=== PATIENT | female | born 1930 | race Caucasian/White ===

== ENCOUNTER 2016-11-14 21:28 | Inpatient (IN) | payer MEDICARE, BC ==
[2016-11-14] MEDS ORDERED: Milk Of Magnesia 30 ML UDCUP PO PRN (22:32)
[2016-11-15] MEDS: Acetaminophen 500 MG TAB PO SCH ×5 (00:18→23:02)
[2016-11-15 06:08] LABS: ALT (SGPT) 16 U/L (8-55); AST (SGOT) 24 U/L (5-34); Albumin 3.2 g/dL (3.4-4.8); Alkaline Phosphatase 72 U/L (40-150); Anion Gap 16 mmol/L (10-20); BUN (Urea Nitrogen) 37 mg/dL (9.8-20.1); Bilirubin, Total 0.6 mg/dL (0.2-1.2); Calc. Creatinine Clearance 40 mL/min (70-130); Calcium 9.2 mg/dL (7.8-10.44); Carbon Dioxide 28 mmol/L (23-31); Chloride 101 mmol/L (98-107); Estimated GFR-MDRD 28; Globulin 3.6 g/dL (2.4-3.5); Glucose 132 mg/dL (83-110); Protein, Total 6.8 g/dL (6.0-8.3); Sodium 141 mmol/L (136-145)
[2016-11-15 06:11] LABS: Eosinophils 2 % (0-10); Hemoglobin 9.3 g/dL (12.0-16.0); Lymphocytes 37 % (21-51); MDiff Complete? YES; Mean Corpuscular HGB CONC 34.3 g/dL (32.0-36.0); Mean Corpuscular Volume 99.1 fl (81.0-99.0); Mean Platelet Volume 7.3 fL (7.4-10.4); Monocytes 7 % (0-10); Neutrophil 54 % (42-75); PLT Morphology Comment Appears Adequate; Platelet Count 252 thou/uL (130-400); RBC Distribution Width 14.2 % (11.5-14.5); Red Blood Cell (RBC) Count 2.75 mill/uL (4.20-5.40); White Blood Cell (WBC) Count 9.7 thou/uL (4.8-10.8)
[2016-11-15] MEDS: Mometasone/Formoterol 60 PUFF AER INH SCH ×2 (08:10→18:08)
[2016-11-15] MEDS: Losartan Potassium 25 MG TAB PO SCH (08:11)
[2016-11-15] MEDS: Potassium Chloride 10 MEQ TAB PO SCH (08:12)
[2016-11-15] MEDS: NIFEdipine XL 30 MG TAB PO SCH (08:13)
[2016-11-15] MEDS: Floranex Packet PO SCH (08:13)
[2016-11-15] MEDS: Ferrous Gluconate 324 MG TAB PO SCH ×2 (08:13→17:26)
[2016-11-15] MEDS: Senokot S 8.6-50 MG TAB PO SCH ×2 (08:14→20:22)
[2016-11-15] MEDS: Gabapentin 300 MG CAP PO SCH (08:14)
[2016-11-15] MEDS: Ezetimibe 10 MG TAB PO SCH (08:14)
[2016-11-15] MEDS: Vit A,C & E/Lutein/Minerals Tablet PO SCH (08:14)
[2016-11-15] MEDS: Heparin 5,000 UNITS/ML VIAL SC SCH ×2 (08:15→21:50)
[2016-11-15] MEDS: Polyethylene Glycol 3350 17 GM Packet PO SCH (08:16)
[2016-11-15] MEDS: Bisacodyl 10 MG SUPP PR SCH (08:19)
[2016-11-15] MEDS ORDERED: BIOTIN PO SCH (09:00)
[2016-11-15] MEDS ORDERED: VITAMIN E PO SCH (09:00)
[2016-11-15] MEDS ORDERED: ASCORBIC ACID PO SCH (09:00)
[2016-11-15] MEDS ORDERED: Furosemide 40 MG TAB PO SCH ×2 (09:00→10:30)
--- NOTE | 2016-11-15 09:54 | RAD ---
SINGLE VIEW OF CHEST: Date: 11/15/16 COMPARISON: 11/11/16. HISTORY: COPD and low oxygen saturation. FINDINGS: Single view of the chest shows an enlarged but stable cardiomediastinal silhouette with atherosclero tic calcifications in the aorta. Increased interstitial lung markings are present. There is no evide nce of consolidation, mass, or pleural effusion. IMPRESSION: Cardiomegaly without evidence of acute cardiopulmonary disease. POS: [facility]
[2016-11-15] MEDS: Furosemide 80 MG TAB PO SCH (15:00)
[2016-11-15 21:22] LABS: INR-International Normal Ratio 1.2; PTT 30.8 SEC (22.9-36.1)
[2016-11-15] MEDS: traMADol HCl 50 MG TAB PO PRN (21:37)
[2016-11-16] MEDS: Acetaminophen 500 MG TAB PO SCH ×4 (05:52→23:29)
[2016-11-16] MEDS: Mometasone/Formoterol 60 PUFF AER INH SCH ×2 (07:25→18:06)
[2016-11-16] MEDS: Heparin 5,000 UNITS/ML VIAL SC SCH (08:40)
[2016-11-16] MEDS: Ezetimibe 10 MG TAB PO SCH (08:40)
[2016-11-16] MEDS: Vit A,C & E/Lutein/Minerals Tablet PO SCH (08:40)
[2016-11-16] MEDS: Potassium Chloride 10 MEQ TAB PO SCH (08:41)
[2016-11-16] MEDS: NIFEdipine XL 30 MG TAB PO SCH (08:42)
[2016-11-16] MEDS: Senokot S 8.6-50 MG TAB PO SCH ×2 (08:42→20:52)
[2016-11-16] MEDS: Floranex Packet PO SCH (08:43)
[2016-11-16] MEDS: Furosemide 80 MG TAB PO SCH ×2 (08:43→14:42)
[2016-11-16] MEDS: Ferrous Gluconate 324 MG TAB PO SCH ×2 (08:43→17:09)
[2016-11-16] MEDS: Losartan Potassium 25 MG TAB PO SCH (08:43)
[2016-11-16] MEDS: Gabapentin 300 MG CAP PO SCH (08:44)
[2016-11-16] MEDS: Polyethylene Glycol 3350 17 GM Packet PO SCH (08:44)
[2016-11-16] MEDS: Bisacodyl 10 MG SUPP PR SCH (08:44)
[2016-11-16] MEDS: Nitroglycerin 0.4 MG TAB (25 Tab Bottle) SL PRN ×2 (21:35→22:01)
[2016-11-16 22:47] LABS: Troponin I 0.092 ng/mL (< 0.028)
[2016-11-17] MEDS: Acetaminophen 500 MG TAB PO SCH ×4 (06:01→23:05)
[2016-11-17] MEDS: Mometasone/Formoterol 60 PUFF AER INH SCH ×2 (06:02→19:11)
[2016-11-17 08:23] LABS: INR-International Normal Ratio 1.1; Mean Corpuscular HGB CONC 32.3 g/dL (32.0-36.0); Mean Corpuscular Hemoglobin 32.6 pg (27.0-31.0); PTT 28.5 SEC (22.9-36.1); Platelet Count 283 thou/uL (130-400); Prothrombin Time 14.9 SEC (12.0-14.7); RBC Distribution Width 15.7 % (11.5-14.5); Red Blood Cell (RBC) Count 2.75 mill/uL (4.20-5.40); White Blood Cell (WBC) Count 10.7 thou/uL (4.8-10.8)
[2016-11-17 08:33] LABS: Anion Gap 18 mmol/L (10-20); BUN (Urea Nitrogen) 37 mg/dL (9.8-20.1); Calc. Creatinine Clearance 38 mL/min (70-130); Carbon Dioxide 26 mmol/L (23-31); Chloride 101 mmol/L (98-107); Estimated GFR-MDRD 26; Glucose 131 mg/dL (83-110); Potassium 3.8 mmol/L (3.5-5.1); Sodium 141 mmol/L (136-145)
[2016-11-17] MEDS: Potassium Chloride 10 MEQ TAB PO SCH (08:44)
[2016-11-17] MEDS: Ferrous Gluconate 324 MG TAB PO SCH ×2 (08:44→17:15)
[2016-11-17] MEDS: Floranex Packet PO SCH (08:45)
[2016-11-17 08:47] LABS: CKMB 2.1 ng/mL (0-6.6)
[2016-11-17] MEDS: Gabapentin 300 MG CAP PO SCH (08:47)
[2016-11-17] MEDS: Ezetimibe 10 MG TAB PO SCH (08:47)
[2016-11-17] MEDS: Senokot S 8.6-50 MG TAB PO SCH ×2 (08:47→20:59)
[2016-11-17] MEDS: Vit A,C & E/Lutein/Minerals Tablet PO SCH (08:47)
[2016-11-17] MEDS: Furosemide 80 MG TAB PO SCH ×2 (08:48→14:12)
[2016-11-17] MEDS: Losartan Potassium 25 MG TAB PO SCH (08:48)
[2016-11-17] MEDS: NIFEdipine XL 30 MG TAB PO SCH (08:48)
[2016-11-17] MEDS: Polyethylene Glycol 3350 17 GM Packet PO SCH (08:49)
[2016-11-17] MEDS: Bisacodyl 10 MG SUPP PR SCH (08:53)
[2016-11-17 08:54] LABS: Anisocytosis MARKED = >30 cells (100X) (0-5/hpf); Band 11 % (5-11); Eosinophils 2 % (0-10); Hypochromia MARKED = >30 cells (100X) (0-5/hpf); Lymphocytes 11 % (21-51); MDiff Complete? YES; Macrocytosis MARKED = >30 cells (100X) (0-5/hpf); Monocytes 7 % (0-10); Neutrophil 69 % (42-75); Poikilocytosis SLIGHT = 6-15 cells (100X) (0-5/hpf)
[2016-11-17] MEDS: Heparin 5,000 UNITS/ML VIAL SC SCH ×2 (08:59→20:58)
[2016-11-17] MEDS: traMADol HCl 50 MG TAB PO PRN (11:47)
[2016-11-17 14:08] LABS: CKMB 2.3 ng/mL (0-6.6); Troponin I 0.066 ng/mL (< 0.028)
[2016-11-18] MEDS: Acetaminophen 500 MG TAB PO SCH ×4 (05:28→23:22)
[2016-11-18] MEDS: Mometasone/Formoterol 60 PUFF AER INH SCH ×2 (07:08→20:03)
[2016-11-18] MEDS: Heparin 5,000 UNITS/ML VIAL SC SCH ×2 (08:19→20:05)
[2016-11-18] MEDS: AZILSARTAN 80 MG PO SCH (08:19)
[2016-11-18] MEDS: Floranex Packet PO SCH (08:20)
[2016-11-18] MEDS: Gabapentin 300 MG CAP PO SCH (08:20)
[2016-11-18] MEDS: Potassium Chloride 10 MEQ TAB PO SCH (08:20)
[2016-11-18] MEDS: Vit A,C & E/Lutein/Minerals Tablet PO SCH (08:20)
[2016-11-18] MEDS: Furosemide 40 MG TAB PO SCH ×2 (08:20→14:41)
[2016-11-18] MEDS: Ezetimibe 10 MG TAB PO SCH (08:21)
[2016-11-18] MEDS: NIFEdipine XL 30 MG TAB PO SCH (08:21)
[2016-11-18] MEDS: Ferrous Gluconate 324 MG TAB PO SCH ×2 (08:22→17:20)
[2016-11-18] MEDS: Senokot S 8.6-50 MG TAB PO SCH ×2 (08:23→20:05)
[2016-11-18] MEDS: Polyethylene Glycol 3350 17 GM Packet PO SCH (08:23)
[2016-11-18] MEDS: traMADol HCl 50 MG TAB PO PRN (21:51)
[2016-11-19] MEDS ORDERED: Senokot S 8.6-50 MG TAB ONE (08:00)
[2016-11-19] MEDS ORDERED: Ferrous Gluconate 324 MG TAB ONE (08:00)
[2016-11-19] MEDS ORDERED: Potassium Chloride 10 MEQ TAB ONE (08:00)
[2016-11-19] MEDS ORDERED: Furosemide 40 MG TAB ONE (09:00)
[2016-11-19] MEDS ORDERED: Ezetimibe 10 MG TAB ONE (09:00)
[2016-11-19] MEDS ORDERED: Floranex Packet ONE (09:00)
[2016-11-19] MEDS ORDERED: Gabapentin 300 MG CAP ONE (09:00)
[2016-11-19] MEDS ORDERED: NIFEdipine XL 30 MG TAB ONE (09:00)
[2016-11-19] MEDS ORDERED: Heparin 5,000 UNITS/ML VIAL ONE (09:00)
[2016-11-19] MEDS ORDERED: Polyethylene Glycol 3350 17 GM Packet ONE (09:00)
[2016-11-19] MEDS ORDERED: Vit A,C & E/Lutein/Minerals Tablet ONE (09:00)
[2016-11-19] MEDS: Acetaminophen 500 MG TAB PO SCH ×3 (11:17→17:27)
[2016-11-19] MEDS: Ferrous Gluconate 324 MG TAB PO SCH ×2 (11:18→17:27)
[2016-11-19] MEDS: Mometasone/Formoterol 60 PUFF AER INH SCH ×2 (11:18→20:57)
[2016-11-19] MEDS: Floranex Packet PO SCH (11:19)
[2016-11-19] MEDS: Potassium Chloride 10 MEQ TAB PO SCH (11:19)
[2016-11-19] MEDS: Gabapentin 300 MG CAP PO SCH (11:20)
[2016-11-19] MEDS: Furosemide 40 MG TAB PO SCH ×2 (11:20→14:43)
[2016-11-19] MEDS: Ezetimibe 10 MG TAB PO SCH (11:20)
[2016-11-19] MEDS: Heparin 5,000 UNITS/ML VIAL SC SCH ×2 (11:20→21:03)
[2016-11-19] MEDS: Vit A,C & E/Lutein/Minerals Tablet PO SCH (11:21)
[2016-11-19] MEDS: Polyethylene Glycol 3350 17 GM Packet PO SCH (11:21)
[2016-11-19] MEDS: AZILSARTAN 80 MG PO SCH (11:21)
[2016-11-19] MEDS: NIFEdipine XL 30 MG TAB PO SCH (11:21)
[2016-11-19] MEDS: Senokot S 8.6-50 MG TAB PO SCH ×2 (11:21→21:03)
[2016-11-19 14:19] VITALS: BMI 44.1
[2016-11-20] MEDS: Acetaminophen 500 MG TAB PO SCH ×4 (02:07→17:23)
[2016-11-20] MEDS: Mometasone/Formoterol 60 PUFF AER INH SCH ×3 (08:19→17:24)
[2016-11-20] MEDS: AZILSARTAN 80 MG PO SCH (08:46)
[2016-11-20] MEDS: Potassium Chloride 10 MEQ TAB PO SCH (08:47)
[2016-11-20] MEDS: Floranex Packet PO SCH (08:47)
[2016-11-20] MEDS: Senokot S 8.6-50 MG TAB PO SCH ×2 (08:47→20:54)
[2016-11-20] MEDS: NIFEdipine XL 30 MG TAB PO SCH (08:48)
[2016-11-20] MEDS: Ezetimibe 10 MG TAB PO SCH (08:48)
[2016-11-20] MEDS: Ferrous Gluconate 324 MG TAB PO SCH ×2 (08:48→17:23)
[2016-11-20] MEDS: Furosemide 40 MG TAB PO SCH ×3 (08:50→15:36)
[2016-11-20] MEDS: Heparin 5,000 UNITS/ML VIAL SC SCH ×2 (08:51→20:52)
[2016-11-20] MEDS: Polyethylene Glycol 3350 17 GM Packet PO SCH (08:51)
[2016-11-20] MEDS: Gabapentin 300 MG CAP PO SCH (08:52)
[2016-11-20] MEDS: Vit A,C & E/Lutein/Minerals Tablet PO SCH (08:52)
[2016-11-21] MEDS: traMADol HCl 50 MG TAB PO PRN ×2 (00:10→22:39)
[2016-11-21] MEDS: Acetaminophen 500 MG TAB PO SCH ×4 (00:10→18:18)
[2016-11-21] MEDS: Senokot S 8.6-50 MG TAB PO SCH ×2 (08:28→20:52)
[2016-11-21] MEDS: Floranex Packet PO SCH (08:28)
[2016-11-21] MEDS: Vit A,C & E/Lutein/Minerals Tablet PO SCH (08:28)
[2016-11-21] MEDS: Ferrous Gluconate 324 MG TAB PO SCH ×2 (08:28→18:18)
[2016-11-21] MEDS: Gabapentin 300 MG CAP PO SCH (08:29)
[2016-11-21] MEDS: Potassium Chloride 10 MEQ TAB PO SCH (08:29)
[2016-11-21] MEDS: NIFEdipine XL 30 MG TAB PO SCH (08:29)
[2016-11-21] MEDS: Furosemide 40 MG TAB PO SCH ×2 (08:29→15:41)
[2016-11-21] MEDS: Polyethylene Glycol 3350 17 GM Packet PO SCH (08:30)
[2016-11-21] MEDS: AZILSARTAN 80 MG PO SCH (08:31)
[2016-11-21] MEDS: Ezetimibe 10 MG TAB PO SCH (08:31)
[2016-11-21] MEDS: Mometasone/Formoterol 60 PUFF AER INH SCH ×2 (08:34→18:18)
[2016-11-21] MEDS: Heparin 5,000 UNITS/ML VIAL SC SCH ×2 (12:13→20:51)
[2016-11-22] MEDS: Acetaminophen 500 MG TAB PO SCH ×4 (06:19→17:28)
[2016-11-22] MEDS: Gabapentin 300 MG CAP PO SCH (09:28)
[2016-11-22] MEDS: Vit A,C & E/Lutein/Minerals Tablet PO SCH (09:29)
[2016-11-22] MEDS: NIFEdipine XL 30 MG TAB PO SCH (09:29)
[2016-11-22] MEDS: Floranex Packet PO SCH (09:29)
[2016-11-22] MEDS: Heparin 5,000 UNITS/ML VIAL SC SCH ×2 (09:30→20:19)
[2016-11-22] MEDS: Polyethylene Glycol 3350 17 GM Packet PO SCH (09:30)
[2016-11-22] MEDS: Furosemide 40 MG TAB PO SCH ×2 (09:30→15:07)
[2016-11-22] MEDS: Ezetimibe 10 MG TAB PO SCH (09:30)
[2016-11-22] MEDS: Senokot S 8.6-50 MG TAB PO SCH ×2 (09:30→20:20)
[2016-11-22] MEDS: Potassium Chloride 10 MEQ TAB PO SCH (09:31)
[2016-11-22] MEDS: Ferrous Gluconate 324 MG TAB PO SCH ×2 (09:31→17:28)
[2016-11-22] MEDS: Mometasone/Formoterol 60 PUFF AER INH SCH ×2 (09:31→18:03)
[2016-11-22] MEDS: AZILSARTAN 80 MG PO SCH (09:32)
[2016-11-23] MEDS: Acetaminophen 500 MG TAB PO SCH ×4 (00:04→17:13)
[2016-11-23] MEDS: Mometasone/Formoterol 60 PUFF AER INH SCH ×2 (06:17→18:11)
[2016-11-23] MEDS: Floranex Packet PO SCH (09:08)
[2016-11-23] MEDS: Polyethylene Glycol 3350 17 GM Packet PO SCH (09:08)
[2016-11-23] MEDS: Potassium Chloride 10 MEQ TAB PO SCH (09:09)
[2016-11-23] MEDS: Vit A,C & E/Lutein/Minerals Tablet PO SCH (09:09)
[2016-11-23] MEDS: Ferrous Gluconate 324 MG TAB PO SCH ×2 (09:09→17:13)
[2016-11-23] MEDS: Senokot S 8.6-50 MG TAB PO SCH ×2 (09:09→21:13)
[2016-11-23] MEDS: Gabapentin 300 MG CAP PO SCH (09:09)
[2016-11-23] MEDS: Furosemide 40 MG TAB PO SCH ×2 (09:10→15:04)
[2016-11-23] MEDS: NIFEdipine XL 30 MG TAB PO SCH (09:10)
[2016-11-23] MEDS: Heparin 5,000 UNITS/ML VIAL SC SCH ×2 (09:11→21:11)
[2016-11-23] MEDS: Ezetimibe 10 MG TAB PO SCH (09:11)
[2016-11-23] MEDS: AZILSARTAN 80 MG PO SCH (09:11)
[2016-11-23] MEDS: traMADol HCl 50 MG TAB PO PRN (21:46)
[2016-11-24] MEDS: Acetaminophen 500 MG TAB PO SCH ×4 (02:47→17:14)
[2016-11-24] MEDS: Mometasone/Formoterol 60 PUFF AER INH SCH ×2 (08:08→18:10)
[2016-11-24] MEDS: traMADol HCl 50 MG TAB PO PRN (08:24)
[2016-11-24] MEDS: Ferrous Gluconate 324 MG TAB PO SCH ×2 (08:26→17:14)
[2016-11-24] MEDS: Heparin 5,000 UNITS/ML VIAL SC SCH ×2 (08:26→20:43)
[2016-11-24] MEDS: Polyethylene Glycol 3350 17 GM Packet PO SCH (08:26)
[2016-11-24] MEDS: Senokot S 8.6-50 MG TAB PO SCH ×2 (08:27→20:45)
[2016-11-24] MEDS: Ezetimibe 10 MG TAB PO SCH (08:27)
[2016-11-24] MEDS: Gabapentin 300 MG CAP PO SCH (08:27)
[2016-11-24] MEDS: NIFEdipine XL 30 MG TAB PO SCH (08:27)
[2016-11-24] MEDS: Vit A,C & E/Lutein/Minerals Tablet PO SCH (08:27)
[2016-11-24] MEDS: Potassium Chloride 10 MEQ TAB PO SCH (08:29)
[2016-11-24] MEDS: Furosemide 40 MG TAB PO SCH ×2 (08:29→14:26)
[2016-11-24] MEDS: AZILSARTAN 80 MG PO SCH (08:29)
[2016-11-24] MEDS: Floranex Packet PO SCH (08:41)
[2016-11-25] MEDS: Acetaminophen 500 MG TAB PO SCH ×3 (04:09→11:18)
[2016-11-25] MEDS: Mometasone/Formoterol 60 PUFF AER INH SCH ×2 (06:36→18:25)
[2016-11-25] MEDS: Potassium Chloride 10 MEQ TAB PO SCH (09:01)
[2016-11-25] MEDS: Ferrous Gluconate 324 MG TAB PO SCH ×2 (09:01→16:54)
[2016-11-25] MEDS: Floranex Packet PO SCH (09:02)
[2016-11-25] MEDS: Ezetimibe 10 MG TAB PO SCH (09:03)
[2016-11-25] MEDS: Gabapentin 300 MG CAP PO SCH (09:03)
[2016-11-25] MEDS: Furosemide 40 MG TAB PO SCH ×2 (09:03→13:51)
[2016-11-25] MEDS: Heparin 5,000 UNITS/ML VIAL SC SCH ×2 (09:03→22:18)
[2016-11-25] MEDS: NIFEdipine XL 30 MG TAB PO SCH (09:04)
[2016-11-25] MEDS: Senokot S 8.6-50 MG TAB PO SCH ×2 (09:06→22:18)
[2016-11-25] MEDS: Polyethylene Glycol 3350 17 GM Packet PO SCH (09:06)
[2016-11-25] MEDS: Vit A,C & E/Lutein/Minerals Tablet PO SCH (09:06)
[2016-11-25] MEDS: AZILSARTAN 80 MG PO SCH (09:12)
[2016-11-25] MEDS ORDERED: Acetaminophen 500 MG TAB PO PRN (13:27)
[2016-11-25 13:59] LABS: INR-International Normal Ratio 1.1; Prothrombin Time 13.9 SEC (12.0-14.7)
[2016-11-25 14:03] LABS: Hemoglobin 9.3 g/dL (12.0-16.0); Platelet Count 307 thou/uL (130-400)
[2016-11-26] MEDS: Bisacodyl 10 MG SUPP PR PRN (09:14)
[2016-11-26] MEDS: Mometasone/Formoterol 60 PUFF AER INH SCH ×2 (09:15→19:18)
[2016-11-26] MEDS: Polyethylene Glycol 3350 17 GM Packet PO SCH (09:15)
[2016-11-26] MEDS: Floranex Packet PO SCH (09:15)
[2016-11-26] MEDS: Ferrous Gluconate 324 MG TAB PO SCH ×2 (09:16→17:37)
[2016-11-26] MEDS: NIFEdipine XL 30 MG TAB PO SCH (09:16)
[2016-11-26] MEDS: Ezetimibe 10 MG TAB PO SCH (09:16)
[2016-11-26] MEDS: Vit A,C & E/Lutein/Minerals Tablet PO SCH (09:16)
[2016-11-26] MEDS: Gabapentin 300 MG CAP PO SCH (09:16)
[2016-11-26] MEDS: Potassium Chloride 10 MEQ TAB PO SCH (09:17)
[2016-11-26] MEDS: Heparin 5,000 UNITS/ML VIAL SC SCH ×2 (09:17→20:39)
[2016-11-26] MEDS: Furosemide 40 MG TAB PO SCH ×3 (09:17→15:44)
[2016-11-26] MEDS: Senokot S 8.6-50 MG TAB PO SCH ×2 (09:17→20:40)
[2016-11-26] MEDS: AZILSARTAN 80 MG PO SCH (09:18)
[2016-11-26] MEDS: Nystatin Cream 15 GM TUBE TOP SCH ×2 (17:37→20:40)
[2016-11-27] MEDS: Mometasone/Formoterol 60 PUFF AER INH SCH ×2 (06:06→19:49)
[2016-11-27] MEDS: AZILSARTAN 80 MG PO SCH (08:33)
[2016-11-27] MEDS: Nystatin Cream 15 GM TUBE TOP SCH ×2 (08:34→20:39)
[2016-11-27] MEDS: Vit A,C & E/Lutein/Minerals Tablet PO SCH (08:34)
[2016-11-27] MEDS: Heparin 5,000 UNITS/ML VIAL SC SCH ×2 (08:34→20:39)
[2016-11-27] MEDS: Senokot S 8.6-50 MG TAB PO SCH ×2 (08:35→20:39)
[2016-11-27] MEDS: Floranex Packet PO SCH (08:35)
[2016-11-27] MEDS: Potassium Chloride 10 MEQ TAB PO SCH (08:35)
[2016-11-27] MEDS: NIFEdipine XL 30 MG TAB PO SCH (08:35)
[2016-11-27] MEDS: Ezetimibe 10 MG TAB PO SCH (08:35)
[2016-11-27] MEDS: Gabapentin 300 MG CAP PO SCH (08:35)
[2016-11-27] MEDS: Ferrous Gluconate 324 MG TAB PO SCH ×2 (08:36→17:24)
[2016-11-27] MEDS: Furosemide 40 MG TAB PO SCH ×2 (08:36→14:22)
[2016-11-27] MEDS: Polyethylene Glycol 3350 17 GM Packet PO SCH (08:36)
[2016-11-28] MEDS: Mometasone/Formoterol 60 PUFF AER INH SCH ×2 (06:15→18:34)
[2016-11-28] MEDS: Fluconazole 100 MG TAB PO SCH (08:26)
[2016-11-28] MEDS: Vit A,C & E/Lutein/Minerals Tablet PO SCH (08:26)
[2016-11-28] MEDS: Ezetimibe 10 MG TAB PO SCH (08:26)
[2016-11-28] MEDS: Senokot S 8.6-50 MG TAB PO SCH ×2 (08:27→21:05)
[2016-11-28] MEDS: Furosemide 40 MG TAB PO SCH ×2 (08:27→14:36)
[2016-11-28] MEDS: Gabapentin 300 MG CAP PO SCH (08:27)
[2016-11-28] MEDS: Floranex Packet PO SCH (08:27)
[2016-11-28] MEDS: Polyethylene Glycol 3350 17 GM Packet PO SCH (08:28)
[2016-11-28] MEDS: Ferrous Gluconate 324 MG TAB PO SCH ×2 (08:28→18:34)
[2016-11-28] MEDS: Potassium Chloride 10 MEQ TAB PO SCH (08:28)
[2016-11-28] MEDS: NIFEdipine XL 30 MG TAB PO SCH (08:28)
[2016-11-28] MEDS: AZILSARTAN 80 MG PO SCH (08:29)
[2016-11-28] MEDS: Heparin 5,000 UNITS/ML VIAL SC SCH ×2 (10:24→21:06)
[2016-11-28] MEDS: Nystatin Cream 15 GM TUBE TOP SCH ×2 (10:25→21:06)
[2016-11-29] MEDS: Mometasone/Formoterol 60 PUFF AER INH SCH ×2 (09:38→18:25)
[2016-11-29] MEDS: Ferrous Gluconate 324 MG TAB PO SCH ×2 (09:39→17:28)
[2016-11-29] MEDS: Potassium Chloride 10 MEQ TAB PO SCH (09:40)
[2016-11-29] MEDS: Floranex Packet PO SCH (09:41)
[2016-11-29] MEDS: Heparin 5,000 UNITS/ML VIAL SC SCH ×2 (09:42→20:35)
[2016-11-29] MEDS: Furosemide 40 MG TAB PO SCH ×2 (09:42→13:55)
[2016-11-29] MEDS: Ezetimibe 10 MG TAB PO SCH (09:42)
[2016-11-29] MEDS: Gabapentin 300 MG CAP PO SCH (09:42)
[2016-11-29] MEDS: Fluconazole 100 MG TAB PO SCH (09:42)
[2016-11-29] MEDS: NIFEdipine XL 30 MG TAB PO SCH (09:43)
[2016-11-29] MEDS: AZILSARTAN 80 MG PO SCH (09:44)
[2016-11-29] MEDS: Vit A,C & E/Lutein/Minerals Tablet PO SCH (09:45)
[2016-11-29] MEDS: Senokot S 8.6-50 MG TAB PO SCH ×2 (09:45→20:34)
[2016-11-29] MEDS: Polyethylene Glycol 3350 17 GM Packet PO SCH (09:45)
[2016-11-29] MEDS: Nystatin Cream 15 GM TUBE TOP SCH ×2 (11:30→20:35)
[2016-11-30] MEDS: Mometasone/Formoterol 60 PUFF AER INH SCH ×2 (06:09→18:13)
[2016-11-30] MEDS: Floranex Packet PO SCH (09:16)
[2016-11-30] MEDS: Ferrous Gluconate 324 MG TAB PO SCH ×2 (09:16→17:39)
[2016-11-30] MEDS: Potassium Chloride 10 MEQ TAB PO SCH (09:16)
[2016-11-30] MEDS: Ezetimibe 10 MG TAB PO SCH (09:17)
[2016-11-30] MEDS: Furosemide 40 MG TAB PO SCH ×2 (09:18→14:11)
[2016-11-30] MEDS: Fluconazole 100 MG TAB PO SCH (09:18)
[2016-11-30] MEDS: Gabapentin 300 MG CAP PO SCH (09:18)
[2016-11-30] MEDS: NIFEdipine XL 30 MG TAB PO SCH (09:19)
[2016-11-30] MEDS: Heparin 5,000 UNITS/ML VIAL SC SCH ×2 (09:19→20:41)
[2016-11-30] MEDS: AZILSARTAN 80 MG PO SCH (09:20)
[2016-11-30] MEDS: Vit A,C & E/Lutein/Minerals Tablet PO SCH (09:21)
[2016-11-30] MEDS: Polyethylene Glycol 3350 17 GM Packet PO SCH (09:21)
[2016-11-30] MEDS: Senokot S 8.6-50 MG TAB PO SCH ×2 (09:21→20:40)
[2016-11-30] MEDS: Nystatin Cream 15 GM TUBE TOP SCH ×2 (09:44→20:42)
[2016-11-30] MEDS: Bisacodyl 10 MG SUPP PR PRN (15:05)
[2016-12-01] MEDS: Mometasone/Formoterol 60 PUFF AER INH SCH ×2 (06:06→18:07)
[2016-12-01] MEDS: Fluconazole 100 MG TAB PO SCH (08:18)
[2016-12-01] MEDS: Potassium Chloride 10 MEQ TAB PO SCH (08:18)
[2016-12-01] MEDS: Ferrous Gluconate 324 MG TAB PO SCH ×2 (08:18→16:52)
[2016-12-01] MEDS: Ezetimibe 10 MG TAB PO SCH (08:20)
[2016-12-01] MEDS: NIFEdipine XL 30 MG TAB PO SCH (08:20)
[2016-12-01] MEDS: Gabapentin 300 MG CAP PO SCH (08:20)
[2016-12-01] MEDS: Heparin 5,000 UNITS/ML VIAL SC SCH ×2 (08:20→20:24)
[2016-12-01] MEDS: Furosemide 40 MG TAB PO SCH ×2 (08:20→13:03)
[2016-12-01] MEDS: AZILSARTAN 80 MG PO SCH (08:21)
[2016-12-01] MEDS: Nystatin Cream 15 GM TUBE TOP SCH ×2 (08:21→20:24)
[2016-12-01] MEDS: Senokot S 8.6-50 MG TAB PO SCH ×2 (08:22→20:24)
[2016-12-01] MEDS: Polyethylene Glycol 3350 17 GM Packet PO SCH (08:22)
[2016-12-01] MEDS: Vit A,C & E/Lutein/Minerals Tablet PO SCH (08:22)
[2016-12-01] MEDS: Floranex Packet PO SCH (08:24)
[2016-12-01 13:41] LABS: Bilirubin Negative (Negative); Blood, Urine Moderate (Negative); Clarity Slightly Cloudy (Clear); Glucose, Urine (Dipstick) Negative (Negative); Leukocyte Moderate (Negative); Nitrite Positive (Negative); Protein, Urine (Dipstick) 30 mg/dL (Neg-Trace); Specific Gravity, Urine 1.015 (1.005-1.030); Urobilinogen 0.2 mg/dL (0.2-1.0)
[2016-12-01 13:44] LABS: Bacteria/HPF 2+ HPF (None Seen); Squamous Epithelial 21-50 HPF (0-3)
[2016-12-01] MEDS ORDERED: Cipro 250 MG TAB PO SCH (14:45)
[2016-12-01] MEDS: Bisacodyl 10 MG SUPP PR PRN (15:19)
[2016-12-01] MEDS: Cipro 250 MG TAB PO SCH (20:24)
[2016-12-02 05:11] LABS: Hemoglobin 9.4 g/dL (12.0-16.0); Platelet Count 223 thou/uL (130-400)
[2016-12-02] MEDS: Mometasone/Formoterol 60 PUFF AER INH SCH (06:03)
[2016-12-02] MEDS: Cipro 250 MG TAB PO SCH (06:03)
[2016-12-02] MEDS: Polyethylene Glycol 3350 17 GM Packet PO SCH (08:35)
[2016-12-02] MEDS: Furosemide 40 MG TAB PO SCH ×2 (08:35→13:53)
[2016-12-02] MEDS: NIFEdipine XL 30 MG TAB PO SCH (08:35)
[2016-12-02] MEDS: Potassium Chloride 10 MEQ TAB PO SCH (08:35)
[2016-12-02] MEDS: Senokot S 8.6-50 MG TAB PO SCH (08:35)
[2016-12-02] MEDS: Floranex Packet PO SCH (08:36)
[2016-12-02] MEDS: Fluconazole 100 MG TAB PO SCH (08:36)
[2016-12-02] MEDS: Ferrous Gluconate 324 MG TAB PO SCH ×2 (08:36→17:35)
[2016-12-02] MEDS: Vit A,C & E/Lutein/Minerals Tablet PO SCH (08:36)
[2016-12-02] MEDS: Heparin 5,000 UNITS/ML VIAL SC SCH (08:37)
[2016-12-02] MEDS: Gabapentin 300 MG CAP PO SCH (08:37)
[2016-12-02] MEDS: Ezetimibe 10 MG TAB PO SCH (08:37)
[2016-12-02] MEDS: Nystatin Cream 15 GM TUBE TOP SCH (08:38)
[2016-12-02] MEDS: AZILSARTAN 80 MG PO SCH (08:38)
[2016-12-02 14:29] LABS: ALT (SGPT) 21 U/L (8-55); AST (SGOT) 16 U/L (5-34); Albumin 3.2 g/dL (3.4-4.8); Alkaline Phosphatase 86 U/L (40-150); Anion Gap 19 mmol/L (10-20); BUN (Urea Nitrogen) 37 mg/dL (9.8-20.1); Bilirubin, Total 0.5 mg/dL (0.2-1.2); Calc. Creatinine Clearance 30 mL/min (70-130); Carbon Dioxide 26 mmol/L (23-31); Chloride 99 mmol/L (98-107); Estimated GFR-MDRD 20; Globulin 3.4 g/dL (2.4-3.5); Glucose 164 mg/dL (83-110); Potassium 4.8 mmol/L (3.5-5.1); Protein, Total 6.6 g/dL (6.0-8.3); Sodium 139 mmol/L (136-145)
[2016-12-02 14:34] LABS: CKMB 1.2 ng/mL (0-6.6); Troponin I 0.062 ng/mL (< 0.028)
[2016-12-02 14:43] LABS: #Basophils 0.1 thou/uL (0.0-0.2); #Eosinphils 0.1 thou/uL (0.0-0.7); #Lymphocytes 0.4 thou/uL (1.20-3.40); #Monocytes 0.4 thou/uL (0.11-0.59); #Neutrophils 4.7 thou/uL (1.40-6.50); %Basophils 1.9 % (0.0-1.0); %Lymphocytes 6.6 % (21.0-51.0); %Monocytes 7.5 % (0.0-10.0); Hemoglobin 9.8 g/dL (12.0-16.0); Mean Corpuscular HGB CONC 30.9 g/dL (32.0-36.0); Mean Corpuscular Volume 107.1 fl (81.0-99.0); Platelet Count 231 thou/uL (130-400); RBC Distribution Width 17.6 % (11.5-14.5); Red Blood Cell (RBC) Count 2.97 mill/uL (4.20-5.40); White Blood Cell (WBC) Count 5.7 thou/uL (4.8-10.8)
[2016-12-02 14:44] LABS: Anisocytosis SLIGHT = 6-15 cells (100X) (0-5/hpf); MDiff Complete? YES; PLT Morphology Comment Appears Adequate
[2016-12-02 14:51] LABS: INR-International Normal Ratio 1.1; PTT 32.7 SEC (22.9-36.1); Prothrombin Time 14.3 SEC (12.0-14.7)
[2016-12-02] MEDS ORDERED: Furosemide 20 MG/2 ML VIAL SLOW IVP SCH (15:30)
--- NOTE | 2016-12-02 15:31 | RAD ---
CHEST ONE VIEW: History: Dyspnea. Follow up. Comparison: 11-15-16 FINDINGS: Cardiac silhouette is magnified and enlarged. Pulmonary vasculature remains engorged with wide sprea d reticular nodular interstitial prominence, similar in appearance to the previous exam. Mediastinum is midline with aortic calcification. There is no evidence of pneumothorax. Metallic clips overlie the right side of the neck and the left axilla. IMPRESSION: Radiographic findings of CHF are similar in appearance to the previous exam. POS: [facility]
[2016-12-02 19:08] VITALS: BP 103/51; TEMP 99.4
== END 2016-12-02 19:04 | disposition short-term general hospital (02) | DRG 559 ==
LOC: MADMS 21:28
PROVIDERS: ADMIT Family Medicine; ATTEND Family Medicine
DX: S72.401D Unspecified fracture of lower end of right femur, subsequent encounter for closed fracture with routine healing (principal); J96.20 Acute and chronic respiratory failure, unspecified whether with hypoxia or hypercapnia; I50.33 Acute on chronic diastolic (congestive) heart failure; N17.9 Acute kidney failure, unspecified; Z99.81 Dependence on supplemental oxygen; D62 Acute posthemorrhagic anemia; I48.91 Unspecified atrial fibrillation; N39.0 Urinary tract infection, site not specified; B37.2 Candidiasis of skin and nail; I13.0 Hypertensive heart and chronic kidney disease with heart failure and stage 1 through stage 4 chronic kidney disease, or unspecified chronic kidney disease; S01.01XD Laceration without foreign body of scalp, subsequent encounter; N18.9 Chronic kidney disease, unspecified; J44.9 Chronic obstructive pulmonary disease, unspecified; W01.0XXD Fall on same level from slipping, tripping and stumbling without subsequent striking against object, subsequent encounter; R33.9 Retention of urine, unspecified; Z66 Do not resuscitate; Z85.118 Personal history of other malignant neoplasm of bronchus and lung
CPT/HCPCS: 36415; 36416; 71010; 80048; 80053; 81001; 82553; 83880; 84484; 85007; 85014; 85018; 85025; 85027; 85049; 85610; 85730; 87077; 87086; 87186; 94640; 94664; G8978-GP-CM; G8979-GP-CK; J1644; J1940; J7620

== ENCOUNTER 2016-12-08 17:42 | Inpatient (IN) | payer MEDICARE, BC ==
[2016-12-08] MEDS ORDERED: Milk Of Magnesia 30 ML UDCUP PO PRN (20:22)
[2016-12-08] MEDS ORDERED: Nitroglycerin 0.4 MG TAB (25 Tab Bottle) SL PRN (20:22)
[2016-12-08] MEDS: Senokot S 8.6-50 MG TAB PO SCH (21:13)
[2016-12-08] MEDS: Heparin 5,000 UNITS/ML VIAL SC SCH (21:13)
[2016-12-08] MEDS: Nystatin Cream 15 GM TUBE TOP SCH (21:14)
[2016-12-09] MEDS: Mometasone/Formoterol 60 PUFF AER INH SCH ×2 (06:04→18:11)
[2016-12-09] MEDS: Furosemide 40 MG TAB PO SCH ×2 (06:04→14:11)
[2016-12-09] MEDS ORDERED: Bisacodyl 10 MG SUPP PR SCH (09:00)
[2016-12-09] MEDS ORDERED: Multivitamin W/ Minerals 1 TAB PO SCH (09:00)
[2016-12-09] MEDS: Heparin 5,000 UNITS/ML VIAL SC SCH ×2 (10:43→20:42)
[2016-12-09] MEDS: NIFEdipine XL 30 MG TAB PO SCH (10:44)
[2016-12-09] MEDS: Ferrous Gluconate 324 MG TAB PO SCH ×2 (10:44→17:29)
[2016-12-09] MEDS: Potassium Chloride 10 MEQ TAB PO SCH (10:46)
[2016-12-09] MEDS: Senokot S 8.6-50 MG TAB PO SCH ×2 (10:46→20:42)
[2016-12-09] MEDS: Losartan Potassium 25 MG TAB PO SCH (10:47)
[2016-12-09] MEDS: Floranex Packet PO SCH (10:48)
[2016-12-09] MEDS: Gabapentin 300 MG CAP PO SCH (10:48)
[2016-12-09] MEDS: Ezetimibe 10 MG TAB PO SCH (10:48)
[2016-12-09] MEDS: Polyethylene Glycol 3350 17 GM Packet PO SCH (10:48)
[2016-12-09] MEDS: Nystatin Cream 15 GM TUBE TOP SCH ×2 (10:50→20:42)
[2016-12-09] MEDS ORDERED: Bisacodyl 10 MG SUPP PR PRN (13:32)
--- NOTE | 2016-12-10 02:27 | HP ---
DATE OF ADMISSION: 12/08/2016 REASON FOR ADMISSION: Skilled rehabilitation in [facility]. HISTORY OF PRESENT ILLNESS AND HOSPITAL COURSE: Ms. Abernathy is an 86-year- old female with multiple chronic medical conditions,including severe COPD, chronic pulmonary failure, )2 dependent, CHF, HTN CAD , morbid obesity . She has has a recent fall and fracture her right leg from home a month or so ago, status post fall repair. Patient was recently in Skilled rehabilitation at [facility] when she was transferred back to [facility] on 12/02/2016 secondary to acute onset on chronic respiratory failure. This was associated with acute on diastolic congestive heart failure exacerbation. She was seen by Cardiology service during this rehospitalization , and she received intravenous diuretics with significant marked improvement of overall respiratory status. There was a reported acute episode of encephalopathy during her hospital stay that had improved. Her home medications were continued per transfer and her oral diuretic was increased to 40 mg b.i.d. from previously 20 mg daily. PAST MEDICAL HISTORY, SURGICAL HISTORY, FAMILY HISTORY: Has no significant change except as per HPI. MEDICATIONS: Acebutolol 200 mg p.o. daily, amiodarone 100 mg p.o. daily, aspirin chewable 81 mg p.o. daily, Dulcolax 10 mg p.r.n. daily, bisacodyl 10 mg p.o. daily, Zetia 10 mg p.o. daily, ferrous sulfate 324 mg p.o. b.i.d., furosemide 40 mg p.o. b.i.d., gabapentin 300 mg p.o. daily, heparin 5000 units subcutaneous b.i.d., ipratropium and albuterol q.4 p.r.n., losartan 150 mg p.o. daily, magnesium hydroxide 30 mg p.o. daily p.r.n., Dulera 2 puffs inhaled b.i.d., multivitamins with mineral 2 tablets daily, nifedipine XL 50 mg p.o. daily, nitroglycerin 0.4 mg sublingual q.15 minutes p.r.n. for chest pain may repeat every 5 minutes x3 and notify MD, nystatin topical b.i.d., pantoprazole 40 mg p.o. daily., polyethylene glycol 17 mg p.o. daily, potassium chloride 10 mEq p.o. daily, hydralazine 10 mg p.o. q.i.d. p.r.n. PHYSICAL EXAMINATION: VITAL SIGNS: Vital signs on admission temperature 97.8, pulse 58-62, respirations 20-22, O2 sats 86%-88% at 5 liters per nasal cannula, blood pressure 151/69. Current vital signs blood pressure 168/70, temperature 96.6, pulse 62, respirations 16, O2 sats 87%-91% at 5 liters per nasal cannula, weight 229 pounds and 9 ounces, height 5 feet 2. GENERAL: Patient is asleep comfortably resting in bed, easily awakened by verbal stimuli. Awake and alert. Interactive, but easily sleeps back. Not in acute distress. HEENT: Normocephalic, atraumatic. PERRL intact. EOM. Anicteric sclerae. Oral mucosa is moist. NECK: Supple. No LAD, no JVD, no bruit. CHEST: Normal excursion, nonlabored breathing. Lungs faint expiratory wheeze and diminished breath sounds bibasilar, otherwise no crackles, no rhonchi. No rales. CARDIAC: RRR. Normal S1 and S2. ABDOMEN: Obese, soft, normoactive bowel sounds, nondistended, nontender. No rebound, no guarding. Negative CVA tenderness bilaterally. GENITOURINARY: Lopez catheter in place, 150 mL light luis manuel colored urine, clear urine. EXTREMITIES: No edema, no cyanosis. SKIN: Postop side in the right lower leg intact, dry, and clean looking. No exudates. No drainage, no signs of infection, no surrounding erythema or edema. NEURO: Nonfocal. DTRs 2+, unsteady gait. LABORATORY DATA: Recent labs on 12/07/2016, white count 6.6, hemoglobin 10.3, platelets 281. Creatinine 1.84 (decrease from peak of 2.32 on 12/02/2016), potassium 3.2, which was replaced, sodium 142, and BUN 32. V/Q scan low probability for pulmonary emboli. ASSESSMENT AND PLAN: This is an 86-year-old female with multiple chronic medical conditions including diastolic congestive heart failure, chronic respiratory failure, O2 dependent, hypertension, obesity, dyslipidemia, and history of unsteady gait secondary to recent repair of the right leg from recent fall at home. Patient is readmitted back to [facility] to continue skilled rehab that was disrupted by acute exacerbation of diastolic congestive heart failure and acute on chronic respiratory failure requiring tertiary hospitalizations/specialty care. 1. Physical deconditioning. We will refer to PT, OT for muscle strengthening, gait training, and exercises with a goal to be able to go back home with at least minimal assist or versus independent living. Patient remains nonweightbearing on the right lower leg per previous Ortho recommendation. 2. Fall precautions. 3. Acute congestive heart failure exacerbation, diastolic, compensated. We will continue oral diuretics and potassium supplement. Routine laboratory, electrolyte monitoring, and renal function monitoring. 4. Acute and chronic respiratory failure, O2 dependent. Current O2 sats is running between 86%-91% at 5 liters per nasal cannula continuous nasal cannula. This appears to be patient's baseline O2 sats at this time. We will continue to closely monitor. 5. COPD. Continue breathing treatment and Dulera. Hypertension, stable blood pressure. Continue current antihypertensive regimen. 6. Chronic kidney disease, stage 3, stable. 7. Morbid obesity. 8. Unsteady gait remains at the increased risk for fall. 9. Anemia, chronic. CODE STATUS: DNR. DISPOSITION: Home with . Estimated length of stay 3-4 weeks. Further recommendations depending on hospital course. MTDD
[2016-12-10] MEDS: Furosemide 40 MG TAB PO SCH ×2 (06:04→13:38)
[2016-12-10] MEDS: Mometasone/Formoterol 60 PUFF AER INH SCH ×2 (06:05→19:18)
[2016-12-10 06:13] LABS: #Basophils 0.1 thou/uL (0.0-0.2); #Eosinphils 0.2 thou/uL (0.0-0.7); #Lymphocytes 0.6 thou/uL (1.20-3.40); #Monocytes 0.7 thou/uL (0.11-0.59); #Neutrophils 7.1 thou/uL (1.40-6.50); %Basophils 0.8 % (0.0-1.0); %Eosinophils 2.6 % (0.0-10.0); %Lymphocytes 6.7 % (21.0-51.0); %Monocytes 7.9 % (0.0-10.0); %Neutrophils 81.9 % (42.0-75.0); Hemoglobin 10.3 g/dL (12.0-16.0); Mean Corpuscular HGB CONC 30.1 g/dL (32.0-36.0); Mean Corpuscular Hemoglobin 31.6 pg (27.0-31.0); Mean Platelet Volume 7.9 fL (7.4-10.4); Platelet Count 244 thou/uL (130-400); RBC Distribution Width 16.7 % (11.5-14.5); Red Blood Cell (RBC) Count 3.25 mill/uL (4.20-5.40); White Blood Cell (WBC) Count 8.7 thou/uL (4.8-10.8)
[2016-12-10 06:14] LABS: Macrocytosis MODERATE=16-30 cells (100X) (0-5/hpf)
[2016-12-10 07:06] LABS: Anion Gap 15 mmol/L (10-20); BUN (Urea Nitrogen) 33 mg/dL (9.8-20.1); Calc. Creatinine Clearance 34 mL/min (70-130); Calcium 9.2 mg/dL (7.8-10.44); Carbon Dioxide 32 mmol/L (23-31); Chloride 101 mmol/L (98-107); Estimated GFR-MDRD 24; Glucose 104 mg/dL (83-110); Potassium 3.8 mmol/L (3.5-5.1); Sodium 144 mmol/L (136-145)
[2016-12-10 07:08] LABS: Hemoglobin A1c 5.2 % (4.0-6.0)
[2016-12-10] MEDS: NIFEdipine XL 30 MG TAB PO SCH (09:16)
[2016-12-10] MEDS: Senokot S 8.6-50 MG TAB PO SCH ×2 (09:16→21:07)
[2016-12-10] MEDS: Losartan Potassium 25 MG TAB PO SCH (09:17)
[2016-12-10] MEDS: Gabapentin 300 MG CAP PO SCH (09:17)
[2016-12-10] MEDS: Ferrous Gluconate 324 MG TAB PO SCH ×2 (09:18→17:08)
[2016-12-10] MEDS: Vit A,C & E/Lutein/Minerals Tablet PO SCH (09:18)
[2016-12-10] MEDS: Polyethylene Glycol 3350 17 GM Packet PO SCH (09:19)
[2016-12-10] MEDS: Heparin 5,000 UNITS/ML VIAL SC SCH ×2 (09:19→21:07)
[2016-12-10] MEDS: Potassium Chloride 10 MEQ TAB PO SCH (09:19)
[2016-12-10] MEDS: Nystatin Cream 15 GM TUBE TOP SCH ×2 (09:25→21:07)
[2016-12-10] MEDS: Ezetimibe 10 MG TAB PO SCH (09:25)
[2016-12-10] MEDS: Floranex Packet PO SCH (09:25)
[2016-12-11] MEDS: Furosemide 40 MG TAB PO SCH ×2 (05:58→13:58)
[2016-12-11] MEDS: Mometasone/Formoterol 60 PUFF AER INH SCH ×2 (06:03→18:32)
[2016-12-11] MEDS: Senokot S 8.6-50 MG TAB PO SCH ×2 (08:49→20:43)
[2016-12-11] MEDS: Floranex Packet PO SCH (08:49)
[2016-12-11] MEDS: Vit A,C & E/Lutein/Minerals Tablet PO SCH (08:49)
[2016-12-11] MEDS: Polyethylene Glycol 3350 17 GM Packet PO SCH (08:49)
[2016-12-11] MEDS: Ezetimibe 10 MG TAB PO SCH (08:49)
[2016-12-11] MEDS: Potassium Chloride 10 MEQ TAB PO SCH (08:50)
[2016-12-11] MEDS: NIFEdipine XL 30 MG TAB PO SCH (08:50)
[2016-12-11] MEDS: Gabapentin 300 MG CAP PO SCH (08:50)
[2016-12-11] MEDS: Ferrous Gluconate 324 MG TAB PO SCH ×2 (08:51→17:19)
[2016-12-11] MEDS: Heparin 5,000 UNITS/ML VIAL SC SCH ×2 (08:51→20:41)
[2016-12-11] MEDS: Losartan Potassium 25 MG TAB PO SCH (08:51)
[2016-12-11] MEDS: Nystatin Cream 15 GM TUBE TOP SCH ×2 (13:59→20:43)
[2016-12-12] MEDS: Mometasone/Formoterol 60 PUFF AER INH SCH ×2 (06:10→18:25)
[2016-12-12] MEDS: Furosemide 40 MG TAB PO SCH ×2 (06:11→13:02)
[2016-12-12] MEDS: Polyethylene Glycol 3350 17 GM Packet PO SCH (08:20)
[2016-12-12] MEDS: Vit A,C & E/Lutein/Minerals Tablet PO SCH (08:20)
[2016-12-12] MEDS: Ezetimibe 10 MG TAB PO SCH (08:21)
[2016-12-12] MEDS: Losartan Potassium 25 MG TAB PO SCH (08:21)
[2016-12-12] MEDS: Gabapentin 300 MG CAP PO SCH (08:22)
[2016-12-12] MEDS: Senokot S 8.6-50 MG TAB PO SCH ×2 (08:22→21:15)
[2016-12-12] MEDS: NIFEdipine XL 30 MG TAB PO SCH (08:22)
[2016-12-12] MEDS: Ferrous Gluconate 324 MG TAB PO SCH ×2 (08:23→17:23)
[2016-12-12] MEDS: Heparin 5,000 UNITS/ML VIAL SC SCH ×2 (08:23→21:13)
[2016-12-12] MEDS: Floranex Packet PO SCH (08:23)
[2016-12-12] MEDS: Potassium Chloride 10 MEQ TAB PO SCH (08:23)
[2016-12-12] MEDS: Nystatin Cream 15 GM TUBE TOP SCH ×2 (08:24→21:15)
[2016-12-12] MEDS ORDERED: Ketorolac Tromethamine 30 MG/ML VIAL IVP SCH (17:00)
[2016-12-13] MEDS: Furosemide 40 MG TAB PO SCH ×2 (06:08→13:59)
[2016-12-13] MEDS: Mometasone/Formoterol 60 PUFF AER INH SCH ×2 (06:09→18:12)
[2016-12-13] MEDS: Senokot S 8.6-50 MG TAB PO SCH ×2 (07:52→20:16)
[2016-12-13] MEDS: Vit A,C & E/Lutein/Minerals Tablet PO SCH (07:52)
[2016-12-13] MEDS: Losartan Potassium 25 MG TAB PO SCH (07:52)
[2016-12-13] MEDS: Gabapentin 300 MG CAP PO SCH (07:53)
[2016-12-13] MEDS: Potassium Chloride 10 MEQ TAB PO SCH (07:54)
[2016-12-13] MEDS: NIFEdipine XL 30 MG TAB PO SCH (07:54)
[2016-12-13] MEDS: Ezetimibe 10 MG TAB PO SCH (07:54)
[2016-12-13] MEDS: Nystatin Cream 15 GM TUBE TOP SCH ×2 (07:54→20:16)
[2016-12-13] MEDS: Ferrous Gluconate 324 MG TAB PO SCH ×2 (07:54→17:07)
[2016-12-13] MEDS: Heparin 5,000 UNITS/ML VIAL SC SCH ×2 (07:54→20:13)
[2016-12-13] MEDS: Polyethylene Glycol 3350 17 GM Packet PO SCH (07:55)
[2016-12-13] MEDS: Floranex Packet PO SCH (07:55)
[2016-12-13] MEDS: Diabetic Tussin 200 MG/10 ML UDCUP PO PRN (22:02)
[2016-12-14] MEDS: Furosemide 40 MG TAB PO SCH ×2 (05:57→14:01)
[2016-12-14] MEDS: Mometasone/Formoterol 60 PUFF AER INH SCH ×2 (06:00→17:24)
[2016-12-14] MEDS: Diabetic Tussin 200 MG/10 ML UDCUP PO PRN (07:32)
[2016-12-14] MEDS: Floranex Packet PO SCH (09:11)
[2016-12-14] MEDS: Ferrous Gluconate 324 MG TAB PO SCH ×2 (09:11→17:24)
[2016-12-14] MEDS: Ezetimibe 10 MG TAB PO SCH (09:12)
[2016-12-14] MEDS: Losartan Potassium 25 MG TAB PO SCH (09:13)
[2016-12-14] MEDS: Gabapentin 300 MG CAP PO SCH (09:13)
[2016-12-14] MEDS: Heparin 5,000 UNITS/ML VIAL SC SCH ×2 (09:13→20:51)
[2016-12-14] MEDS: NIFEdipine XL 30 MG TAB PO SCH (09:14)
[2016-12-14] MEDS: Potassium Chloride 10 MEQ TAB PO SCH (09:15)
[2016-12-14] MEDS: Nystatin Cream 15 GM TUBE TOP SCH ×2 (09:15→20:51)
[2016-12-14] MEDS: Polyethylene Glycol 3350 17 GM Packet PO SCH (09:15)
[2016-12-14] MEDS: Vit A,C & E/Lutein/Minerals Tablet PO SCH (09:16)
[2016-12-14] MEDS: Senokot S 8.6-50 MG TAB PO SCH ×2 (09:16→20:51)
[2016-12-15] MEDS: Furosemide 40 MG TAB PO SCH ×2 (06:03→15:06)
[2016-12-15] MEDS: Mometasone/Formoterol 60 PUFF AER INH SCH ×2 (06:04→18:05)
[2016-12-15] MEDS: Ferrous Gluconate 324 MG TAB PO SCH ×2 (07:37→18:05)
[2016-12-15] MEDS: Floranex Packet PO SCH (08:54)
[2016-12-15] MEDS: Gabapentin 300 MG CAP PO SCH (08:55)
[2016-12-15] MEDS: Heparin 5,000 UNITS/ML VIAL SC SCH ×2 (08:55→21:02)
[2016-12-15] MEDS: Ezetimibe 10 MG TAB PO SCH (08:55)
[2016-12-15] MEDS: Losartan Potassium 25 MG TAB PO SCH (08:56)
[2016-12-15] MEDS: Senokot S 8.6-50 MG TAB PO SCH ×2 (08:57→21:02)
[2016-12-15] MEDS: Nystatin Cream 15 GM TUBE TOP SCH ×2 (08:57→21:02)
[2016-12-15] MEDS: NIFEdipine XL 30 MG TAB PO SCH (08:57)
[2016-12-15] MEDS: Potassium Chloride 10 MEQ TAB PO SCH (08:57)
[2016-12-15] MEDS: Vit A,C & E/Lutein/Minerals Tablet PO SCH (08:58)
[2016-12-15] MEDS: Polyethylene Glycol 3350 17 GM Packet PO SCH (08:59)
[2016-12-15] MEDS: Acetaminophen 500 MG TAB PO PRN (23:33)
[2016-12-16] MEDS: Mometasone/Formoterol 60 PUFF AER INH SCH ×2 (06:03→17:48)
[2016-12-16] MEDS: Furosemide 40 MG TAB PO SCH ×2 (06:03→13:29)
[2016-12-16] MEDS: Polyethylene Glycol 3350 17 GM Packet PO SCH (09:01)
[2016-12-16] MEDS: Heparin 5,000 UNITS/ML VIAL SC SCH ×2 (09:01→20:34)
[2016-12-16] MEDS: NIFEdipine XL 30 MG TAB PO SCH (09:02)
[2016-12-16] MEDS: Ezetimibe 10 MG TAB PO SCH (09:02)
[2016-12-16] MEDS: Vit A,C & E/Lutein/Minerals Tablet PO SCH (09:02)
[2016-12-16] MEDS: Gabapentin 300 MG CAP PO SCH (09:02)
[2016-12-16] MEDS: Potassium Chloride 10 MEQ TAB PO SCH (09:03)
[2016-12-16] MEDS: Senokot S 8.6-50 MG TAB PO SCH ×2 (09:03→20:35)
[2016-12-16] MEDS: Losartan Potassium 25 MG TAB PO SCH (09:04)
[2016-12-16] MEDS: Ferrous Gluconate 324 MG TAB PO SCH ×2 (09:04→17:48)
[2016-12-16] MEDS: Nystatin Cream 15 GM TUBE TOP SCH ×2 (09:05→20:35)
[2016-12-16] MEDS: Diabetic Tussin 200 MG/10 ML UDCUP PO PRN (13:30)
[2016-12-16] MEDS: Floranex Packet PO SCH (13:35)
[2016-12-17] MEDS: Diabetic Tussin 200 MG/10 ML UDCUP PO PRN (06:24)
[2016-12-17] MEDS: Furosemide 40 MG TAB PO SCH ×2 (06:24→14:05)
[2016-12-17] MEDS: Mometasone/Formoterol 60 PUFF AER INH SCH ×2 (06:25→21:13)
[2016-12-17] MEDS: Ferrous Gluconate 324 MG TAB PO SCH ×2 (09:45→17:19)
[2016-12-17] MEDS: Gabapentin 300 MG CAP PO SCH (09:46)
[2016-12-17] MEDS: Floranex Packet PO SCH (09:46)
[2016-12-17] MEDS: Ezetimibe 10 MG TAB PO SCH (09:46)
[2016-12-17] MEDS: Heparin 5,000 UNITS/ML VIAL SC SCH ×2 (09:47→21:11)
[2016-12-17] MEDS: Nystatin Cream 15 GM TUBE TOP SCH ×2 (09:47→21:00)
[2016-12-17] MEDS: Potassium Chloride 10 MEQ TAB PO SCH (09:47)
[2016-12-17] MEDS: Polyethylene Glycol 3350 17 GM Packet PO SCH (09:47)
[2016-12-17] MEDS: NIFEdipine XL 30 MG TAB PO SCH (09:47)
[2016-12-17] MEDS: Losartan Potassium 25 MG TAB PO SCH (09:47)
[2016-12-17] MEDS: Senokot S 8.6-50 MG TAB PO SCH ×2 (09:48→21:10)
[2016-12-17] MEDS: Vit A,C & E/Lutein/Minerals Tablet PO SCH (09:48)
[2016-12-17] MEDS: Acetaminophen 500 MG TAB PO PRN (21:09)
[2016-12-17] MEDS: Cefdinir 300 MG CAP PO SCH (21:10)
[2016-12-18] MEDS: Furosemide 40 MG TAB PO SCH ×2 (06:00→17:14)
[2016-12-18 06:29] LABS: Hemoglobin 10.5 g/dL (12.0-16.0); Platelet Count 210 thou/uL (130-400)
[2016-12-18] MEDS: Mometasone/Formoterol 60 PUFF AER INH SCH ×3 (06:30→18:22)
[2016-12-18 07:22] LABS: Anion Gap 18 mmol/L (10-20); BUN (Urea Nitrogen) 32 mg/dL (9.8-20.1); Calc. Creatinine Clearance 39 mL/min (70-130); Calcium 9.4 mg/dL (7.8-10.44); Carbon Dioxide 30 mmol/L (23-31); Chloride 100 mmol/L (98-107); Estimated GFR-MDRD 28; Glucose 115 mg/dL (83-110); Potassium 3.8 mmol/L (3.5-5.1); Sodium 144 mmol/L (136-145)
[2016-12-18] MEDS: Ferrous Gluconate 324 MG TAB PO SCH ×2 (08:32→17:11)
[2016-12-18] MEDS: Losartan Potassium 25 MG TAB PO SCH (08:32)
[2016-12-18] MEDS: Vit A,C & E/Lutein/Minerals Tablet PO SCH (08:33)
[2016-12-18] MEDS: NIFEdipine XL 30 MG TAB PO SCH (08:33)
[2016-12-18] MEDS: Potassium Chloride 10 MEQ TAB PO SCH (08:33)
[2016-12-18] MEDS: Cefdinir 300 MG CAP PO SCH ×2 (08:34→21:35)
[2016-12-18] MEDS: Gabapentin 300 MG CAP PO SCH (08:34)
[2016-12-18] MEDS: Ezetimibe 10 MG TAB PO SCH (08:34)
[2016-12-18] MEDS: Senokot S 8.6-50 MG TAB PO SCH ×2 (08:35→21:35)
[2016-12-18] MEDS: Polyethylene Glycol 3350 17 GM Packet PO SCH (08:39)
[2016-12-18] MEDS: Nystatin Cream 15 GM TUBE TOP SCH ×2 (08:39→21:36)
[2016-12-18] MEDS: Floranex Packet PO SCH (08:40)
[2016-12-18] MEDS: Heparin 5,000 UNITS/ML VIAL SC SCH ×2 (08:40→21:35)
--- NOTE | 2016-12-18 10:16 | RAD ---
TWO VIEWS OF THE RIGHT FEMUR: DATE: 12/18/16. HISTORY: Post internal fixation of femur fracture. FINDINGS: Compared to intraoperative fluoroscopic images of the right femur on 11/09/16. There is a retrograde intramedullary wendy with proximal and distal interlocking screws again noted tr ansfixing the fracture of the distal right femoral diaphysis. There is no significant callus format ion appreciated about the fracture. Vascular calcifications are again seen in the superficial femor al arteries. There is an O-shaped increased density focus structure seen medial right thigh only se en on the lateral view that is not appreciated on the frontal projection and may be related to overl edvin artifact as opposed to heterotopic ossifications given this is not present on the frontal proje ction. No acute fracture or dislocation is seen. 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 IMPRESSION: Internal fixation of fracture distal right femur unchanged from intraoperative fluoroscopic images o n 11/09/16. POS: [facility]
[2016-12-19] MEDS: Furosemide 40 MG TAB PO SCH ×2 (05:00→13:00)
[2016-12-19] MEDS: Mometasone/Formoterol 60 PUFF AER INH SCH ×2 (07:47→18:05)
[2016-12-19] MEDS: Polyethylene Glycol 3350 17 GM Packet PO SCH (08:06)
[2016-12-19] MEDS: Vit A,C & E/Lutein/Minerals Tablet PO SCH (08:07)
[2016-12-19] MEDS: Senokot S 8.6-50 MG TAB PO SCH ×2 (08:07→20:45)
[2016-12-19] MEDS: Ferrous Gluconate 324 MG TAB PO SCH ×2 (08:08→16:27)
[2016-12-19] MEDS: Losartan Potassium 25 MG TAB PO SCH (08:08)
[2016-12-19] MEDS: Heparin 5,000 UNITS/ML VIAL SC SCH ×2 (08:09→20:45)
[2016-12-19] MEDS: Potassium Chloride 10 MEQ TAB PO SCH (08:09)
[2016-12-19] MEDS: NIFEdipine XL 30 MG TAB PO SCH (08:10)
[2016-12-19] MEDS: Ezetimibe 10 MG TAB PO SCH (08:11)
[2016-12-19] MEDS: Nystatin Cream 15 GM TUBE TOP SCH ×2 (08:12→20:46)
[2016-12-19] MEDS: Gabapentin 300 MG CAP PO SCH (08:12)
[2016-12-19] MEDS: Cefdinir 300 MG CAP PO SCH ×2 (08:18→20:44)
[2016-12-19] MEDS: Floranex Packet PO SCH (08:18)
[2016-12-20] MEDS: Mometasone/Formoterol 60 PUFF AER INH SCH ×2 (05:58→18:57)
[2016-12-20] MEDS: Furosemide 40 MG TAB PO SCH ×2 (05:59→14:53)
[2016-12-20] MEDS: Cefdinir 300 MG CAP PO SCH ×2 (08:53→20:10)
[2016-12-20] MEDS: Heparin 5,000 UNITS/ML VIAL SC SCH ×2 (08:54→20:09)
[2016-12-20] MEDS: Vit A,C & E/Lutein/Minerals Tablet PO SCH (08:54)
[2016-12-20] MEDS: Senokot S 8.6-50 MG TAB PO SCH ×2 (08:54→20:10)
[2016-12-20] MEDS: NIFEdipine XL 30 MG TAB PO SCH (08:55)
[2016-12-20] MEDS: Floranex Packet PO SCH (08:55)
[2016-12-20] MEDS: Potassium Chloride 10 MEQ TAB PO SCH (08:55)
[2016-12-20] MEDS: Losartan Potassium 25 MG TAB PO SCH (08:55)
[2016-12-20] MEDS: Ezetimibe 10 MG TAB PO SCH (08:55)
[2016-12-20] MEDS: Ferrous Gluconate 324 MG TAB PO SCH ×2 (08:55→16:57)
[2016-12-20] MEDS: Gabapentin 300 MG CAP PO SCH (08:55)
[2016-12-20] MEDS: Polyethylene Glycol 3350 17 GM Packet PO SCH (08:56)
[2016-12-20] MEDS: Nystatin Cream 15 GM TUBE TOP SCH ×2 (08:56→20:10)
[2016-12-20] MEDS: Diabetic Tussin 200 MG/10 ML UDCUP PO PRN (19:05)
[2016-12-20] MEDS: Acetaminophen 500 MG TAB PO PRN (22:29)
[2016-12-21] MEDS: Furosemide 40 MG TAB PO SCH ×3 (06:03→17:33)
[2016-12-21] MEDS: Mometasone/Formoterol 60 PUFF AER INH SCH ×2 (06:03→17:33)
[2016-12-21] MEDS: Heparin 5,000 UNITS/ML VIAL SC SCH ×2 (08:21→21:23)
[2016-12-21] MEDS: Losartan Potassium 25 MG TAB PO SCH (08:22)
[2016-12-21] MEDS: NIFEdipine XL 30 MG TAB PO SCH (08:23)
[2016-12-21] MEDS: Vit A,C & E/Lutein/Minerals Tablet PO SCH (08:23)
[2016-12-21] MEDS: Ezetimibe 10 MG TAB PO SCH (08:23)
[2016-12-21] MEDS: Gabapentin 300 MG CAP PO SCH (08:23)
[2016-12-21] MEDS: Floranex Packet PO SCH (08:24)
[2016-12-21] MEDS: Senokot S 8.6-50 MG TAB PO SCH ×2 (08:24→21:22)
[2016-12-21] MEDS: Nystatin Cream 15 GM TUBE TOP SCH ×2 (08:24→22:00)
[2016-12-21] MEDS: Ferrous Gluconate 324 MG TAB PO SCH ×2 (08:24→17:33)
[2016-12-21] MEDS: Polyethylene Glycol 3350 17 GM Packet PO SCH (08:24)
[2016-12-21] MEDS: Cefdinir 300 MG CAP PO SCH ×2 (08:24→21:23)
[2016-12-21] MEDS: Potassium Chloride 10 MEQ TAB PO SCH (08:24)
[2016-12-22] MEDS: Mometasone/Formoterol 60 PUFF AER INH SCH ×2 (06:06→18:28)
[2016-12-22] MEDS: Furosemide 40 MG TAB PO SCH ×2 (06:07→13:38)
[2016-12-22] MEDS: Ferrous Gluconate 324 MG TAB PO SCH ×2 (08:57→17:03)
[2016-12-22] MEDS: Floranex Packet PO SCH (08:57)
[2016-12-22] MEDS: Ezetimibe 10 MG TAB PO SCH (08:58)
[2016-12-22] MEDS: Vit A,C & E/Lutein/Minerals Tablet PO SCH (08:58)
[2016-12-22] MEDS: Gabapentin 300 MG CAP PO SCH (08:58)
[2016-12-22] MEDS: Heparin 5,000 UNITS/ML VIAL SC SCH ×2 (08:58→20:29)
[2016-12-22] MEDS: Cefdinir 300 MG CAP PO SCH ×2 (08:58→20:29)
[2016-12-22] MEDS: NIFEdipine XL 30 MG TAB PO SCH (08:59)
[2016-12-22] MEDS: Senokot S 8.6-50 MG TAB PO SCH ×2 (08:59→20:29)
[2016-12-22] MEDS: Losartan Potassium 25 MG TAB PO SCH (09:00)
[2016-12-22] MEDS: Polyethylene Glycol 3350 17 GM Packet PO SCH (09:01)
[2016-12-22] MEDS: Potassium Chloride 10 MEQ TAB PO SCH (09:01)
[2016-12-22] MEDS: Nystatin Cream 15 GM TUBE TOP SCH ×2 (09:02→20:30)
[2016-12-23] MEDS: Furosemide 40 MG TAB PO SCH ×2 (06:04→14:07)
[2016-12-23] MEDS: Mometasone/Formoterol 60 PUFF AER INH SCH ×2 (06:05→18:23)
[2016-12-23] MEDS: Ferrous Gluconate 324 MG TAB PO SCH ×2 (07:56→16:41)
[2016-12-23] MEDS: Polyethylene Glycol 3350 17 GM Packet PO SCH (08:02)
[2016-12-23] MEDS: Gabapentin 300 MG CAP PO SCH (08:02)
[2016-12-23] MEDS: Cefdinir 300 MG CAP PO SCH ×2 (08:02→20:46)
[2016-12-23] MEDS: Senokot S 8.6-50 MG TAB PO SCH ×2 (08:03→20:46)
[2016-12-23] MEDS: Vit A,C & E/Lutein/Minerals Tablet PO SCH (08:03)
[2016-12-23] MEDS: Heparin 5,000 UNITS/ML VIAL SC SCH ×2 (08:04→20:46)
[2016-12-23] MEDS: Losartan Potassium 25 MG TAB PO SCH (08:04)
[2016-12-23] MEDS: Ezetimibe 10 MG TAB PO SCH (08:04)
[2016-12-23] MEDS: NIFEdipine XL 30 MG TAB PO SCH (08:06)
[2016-12-23] MEDS: Nystatin Cream 15 GM TUBE TOP SCH ×2 (08:09→20:47)
[2016-12-23] MEDS: Potassium Chloride 10 MEQ TAB PO SCH (08:09)
[2016-12-23] MEDS: Floranex Packet PO SCH (08:12)
[2016-12-24] MEDS: Mometasone/Formoterol 60 PUFF AER INH SCH ×2 (05:24→19:13)
[2016-12-24] MEDS: Furosemide 40 MG TAB PO SCH ×2 (09:41→14:28)
[2016-12-24] MEDS: Cefdinir 300 MG CAP PO SCH ×2 (09:41→20:35)
[2016-12-24] MEDS: Ferrous Gluconate 324 MG TAB PO SCH ×2 (09:41→17:06)
[2016-12-24] MEDS: Floranex Packet PO SCH (09:42)
[2016-12-24] MEDS: Ezetimibe 10 MG TAB PO SCH (09:42)
[2016-12-24] MEDS: Potassium Chloride 10 MEQ TAB PO SCH (09:42)
[2016-12-24] MEDS: NIFEdipine XL 30 MG TAB PO SCH (09:42)
[2016-12-24] MEDS: Vit A,C & E/Lutein/Minerals Tablet PO SCH (09:42)
[2016-12-24] MEDS: Senokot S 8.6-50 MG TAB PO SCH ×2 (09:43→20:35)
[2016-12-24] MEDS: Losartan Potassium 25 MG TAB PO SCH (09:43)
[2016-12-24] MEDS: Gabapentin 300 MG CAP PO SCH (09:43)
[2016-12-24] MEDS: Nystatin Cream 15 GM TUBE TOP SCH ×2 (09:44→20:36)
[2016-12-24] MEDS: Heparin 5,000 UNITS/ML VIAL SC SCH ×2 (09:44→20:35)
[2016-12-24] MEDS: Polyethylene Glycol 3350 17 GM Packet PO SCH (09:44)
[2016-12-25] MEDS: Mometasone/Formoterol 60 PUFF AER INH SCH ×2 (06:03→18:08)
[2016-12-25] MEDS: Furosemide 40 MG TAB PO SCH ×2 (06:03→14:07)
[2016-12-25] MEDS: Senokot S 8.6-50 MG TAB PO SCH ×2 (08:39→20:25)
[2016-12-25] MEDS: NIFEdipine XL 30 MG TAB PO SCH (08:39)
[2016-12-25] MEDS: Ferrous Gluconate 324 MG TAB PO SCH ×2 (08:40→16:59)
[2016-12-25] MEDS: Gabapentin 300 MG CAP PO SCH (08:40)
[2016-12-25] MEDS: Potassium Chloride 10 MEQ TAB PO SCH (08:41)
[2016-12-25] MEDS: Vit A,C & E/Lutein/Minerals Tablet PO SCH (08:41)
[2016-12-25] MEDS: Polyethylene Glycol 3350 17 GM Packet PO SCH (08:41)
[2016-12-25] MEDS: Floranex Packet PO SCH (08:41)
[2016-12-25] MEDS: Heparin 5,000 UNITS/ML VIAL SC SCH ×2 (08:41→20:25)
[2016-12-25] MEDS: Ezetimibe 10 MG TAB PO SCH (08:41)
[2016-12-25] MEDS: Nystatin Cream 15 GM TUBE TOP SCH ×2 (08:42→20:25)
[2016-12-25] MEDS: Losartan Potassium 25 MG TAB PO SCH (08:42)
[2016-12-26] MEDS: Furosemide 40 MG TAB PO SCH ×2 (06:05→14:49)
[2016-12-26] MEDS: Mometasone/Formoterol 60 PUFF AER INH SCH ×2 (06:05→18:14)
[2016-12-26] MEDS: Ferrous Gluconate 324 MG TAB PO SCH ×2 (08:06→17:17)
[2016-12-26] MEDS: Losartan Potassium 25 MG TAB PO SCH (09:28)
[2016-12-26] MEDS: Gabapentin 300 MG CAP PO SCH (09:28)
[2016-12-26] MEDS: Heparin 5,000 UNITS/ML VIAL SC SCH (09:28)
[2016-12-26] MEDS: Ezetimibe 10 MG TAB PO SCH (09:28)
[2016-12-26] MEDS: Nystatin Cream 15 GM TUBE TOP SCH ×2 (09:29→20:14)
[2016-12-26] MEDS: NIFEdipine XL 30 MG TAB PO SCH (09:29)
[2016-12-26] MEDS: Potassium Chloride 10 MEQ TAB PO SCH (09:30)
[2016-12-26] MEDS: Senokot S 8.6-50 MG TAB PO SCH ×2 (09:30→20:13)
[2016-12-26] MEDS: Polyethylene Glycol 3350 17 GM Packet PO SCH (09:30)
[2016-12-26] MEDS: Vit A,C & E/Lutein/Minerals Tablet PO SCH (09:30)
[2016-12-26] MEDS: Floranex Packet PO SCH (09:31)
[2016-12-26] MEDS: Diabetic Tussin 200 MG/10 ML UDCUP PO PRN ×2 (12:32→18:09)
[2016-12-27] MEDS: Diabetic Tussin 200 MG/10 ML UDCUP PO PRN ×2 (04:17→21:18)
[2016-12-27] MEDS: Furosemide 40 MG TAB PO SCH ×2 (06:34→14:47)
[2016-12-27] MEDS: Mometasone/Formoterol 60 PUFF AER INH SCH ×2 (06:58→20:52)
[2016-12-27] MEDS: Ferrous Gluconate 324 MG TAB PO SCH ×2 (09:10→17:08)
[2016-12-27] MEDS: Losartan Potassium 25 MG TAB PO SCH (09:11)
[2016-12-27] MEDS: Ezetimibe 10 MG TAB PO SCH (09:11)
[2016-12-27] MEDS: Gabapentin 300 MG CAP PO SCH (09:11)
[2016-12-27] MEDS: NIFEdipine XL 30 MG TAB PO SCH (09:12)
[2016-12-27] MEDS: Polyethylene Glycol 3350 17 GM Packet PO SCH (09:12)
[2016-12-27] MEDS: Nystatin Cream 15 GM TUBE TOP SCH ×2 (09:12→20:52)
[2016-12-27] MEDS: Vit A,C & E/Lutein/Minerals Tablet PO SCH (09:13)
[2016-12-27] MEDS: Senokot S 8.6-50 MG TAB PO SCH ×2 (09:13→20:52)
[2016-12-27] MEDS: Potassium Chloride 10 MEQ TAB PO SCH (09:13)
[2016-12-27] MEDS: Acetaminophen 500 MG TAB PO PRN (09:20)
[2016-12-27] MEDS: Floranex Packet PO SCH (09:24)
[2016-12-28] MEDS: Furosemide 40 MG TAB PO SCH ×2 (05:11→14:14)
[2016-12-28] MEDS: Mometasone/Formoterol 60 PUFF AER INH SCH ×2 (06:24→20:31)
[2016-12-28] MEDS: Losartan Potassium 25 MG TAB PO SCH (08:59)
[2016-12-28] MEDS: Vit A,C & E/Lutein/Minerals Tablet PO SCH (08:59)
[2016-12-28] MEDS: Ferrous Gluconate 324 MG TAB PO SCH ×2 (08:59→16:57)
[2016-12-28] MEDS: NIFEdipine XL 30 MG TAB PO SCH (09:00)
[2016-12-28] MEDS: Gabapentin 300 MG CAP PO SCH (09:01)
[2016-12-28] MEDS: Nystatin Cream 15 GM TUBE TOP SCH ×2 (09:01→20:34)
[2016-12-28] MEDS: Potassium Chloride 10 MEQ TAB PO SCH (09:01)
[2016-12-28] MEDS: Polyethylene Glycol 3350 17 GM Packet PO SCH (09:01)
[2016-12-28] MEDS: Ezetimibe 10 MG TAB PO SCH (09:01)
[2016-12-28] MEDS: Senokot S 8.6-50 MG TAB PO SCH ×2 (09:01→20:34)
[2016-12-28] MEDS: Acetaminophen 500 MG TAB PO PRN (09:02)
[2016-12-28] MEDS: Floranex Packet PO SCH (09:02)
--- NOTE | 2016-12-28 15:09 | RAD ---
PORTABLE CHEST: History: Fever, hypoxia. Comparison: 12-02-16 FINDINGS: Cardiomegaly. Vascular congestion. Interstitial edema. Similar findings were present on 12-02-16. IMPRESSION: Cardiomegaly and congestive changes again noted. POS: [facility]
[2016-12-28 15:17] LABS: Anion Gap 17 mmol/L (10-20); BUN (Urea Nitrogen) 52 mg/dL (9.8-20.1); Calc. Creatinine Clearance 22 mL/min (70-130); Calcium 8.8 mg/dL (7.8-10.44); Carbon Dioxide 25 mmol/L (23-31); Chloride 99 mmol/L (98-107); Estimated GFR-MDRD 15; Glucose 168 mg/dL (83-110); Potassium 4.6 mmol/L (3.5-5.1); Sodium 136 mmol/L (136-145)
[2016-12-28 15:36] LABS: Band 2 % (5-11); Eosinophils 1 % (0-10); Hemoglobin 10.2 g/dL (12.0-16.0); Lymphocytes 1 % (21-51); MDiff Complete? YES; Mean Corpuscular HGB CONC 32.4 g/dL (32.0-36.0); Mean Platelet Volume 9.4 fL (7.4-10.4); Monocytes 1 % (0-10); Neutrophil 88 % (42-75); PLT Morphology Comment Appears Adequate; Platelet Count 168 thou/uL (130-400); RBC Distribution Width 15.1 % (11.5-14.5); Reactive Lymphocytes 7 % (0-10); White Blood Cell (WBC) Count 9.1 thou/uL (4.8-10.8)
[2016-12-28] MEDS ORDERED: Sodium Chloride 0.9% 10 ML ONE (16:32)
[2016-12-28] MEDS: Sodium Chloride 0.9% 1,000 ML IV SCH (16:55)
[2016-12-28 17:59] LABS: Clarity Cloudy (Clear); Leukocyte Small (Negative)
[2016-12-28 18:00] LABS: Bilirubin Negative (Negative); Blood, Urine Small (Negative); Glucose, Urine (Dipstick) Negative (Negative); Icto Negative (Negative); Nitrite Negative (Negative); Protein, Urine (Dipstick) 100 mg/dL (Neg-Trace); Urobilinogen 0.2 mg/dL (0.2-1.0)
[2016-12-28 18:03] LABS: Bacteria/HPF Rare-Few HPF (None Seen); RBC/HPF 0-3 HPF (0-3); Squamous Epithelial 0-3 HPF (0-3); Yeast-All Forms 3+ HPF (None Seen)
[2016-12-28 18:04] LABS: Crystals/HPF 1+ URIC ACID HPF (Negative)
[2016-12-28 18:05] LABS: Hyaline Casts/LPF 4-6 HYALINE CAST LPF (0-3 Hyaline); Other Casts/LPF 0-3 COARSE GRAN LPF (0-3 Hyaline)
[2016-12-29] MEDS: Mometasone/Formoterol 60 PUFF AER INH SCH ×2 (06:04→19:27)
[2016-12-29] MEDS: Losartan Potassium 25 MG TAB PO SCH (08:27)
[2016-12-29] MEDS: Vit A,C & E/Lutein/Minerals Tablet PO SCH (08:27)
[2016-12-29] MEDS: Potassium Chloride 10 MEQ TAB PO SCH (08:28)
[2016-12-29] MEDS: NIFEdipine XL 30 MG TAB PO SCH (08:28)
[2016-12-29] MEDS: Gabapentin 300 MG CAP PO SCH (08:29)
[2016-12-29] MEDS: Ezetimibe 10 MG TAB PO SCH (08:29)
[2016-12-29] MEDS: Furosemide 20 MG TAB PO SCH ×2 (08:29→14:08)
[2016-12-29] MEDS: Senokot S 8.6-50 MG TAB PO SCH ×2 (08:29→20:58)
[2016-12-29] MEDS: Floranex Packet PO SCH (08:29)
[2016-12-29] MEDS: Ferrous Gluconate 324 MG TAB PO SCH ×2 (08:29→17:47)
[2016-12-29] MEDS: Nystatin Cream 15 GM TUBE TOP SCH ×2 (08:30→20:58)
[2016-12-29] MEDS: Polyethylene Glycol 3350 17 GM Packet PO SCH (08:30)
[2016-12-29] MEDS: Sodium Chloride 0.9% 1,000 ML IV SCH ×2 (11:00→16:15)
[2016-12-29 13:21] LABS: Anion Gap 17 mmol/L (10-20); BUN (Urea Nitrogen) 60 mg/dL (9.8-20.1); Calc. Creatinine Clearance 20 mL/min (70-130); Calcium 8.4 mg/dL (7.8-10.44); Carbon Dioxide 22 mmol/L (23-31); Chloride 99 mmol/L (98-107); Estimated GFR-MDRD 13; Glucose 183 mg/dL (83-110); Potassium 4.6 mmol/L (3.5-5.1); Sodium 133 mmol/L (136-145)
[2016-12-29] MEDS: cefTRIAXone\\ROCEPHIN 1 GM in Sodium Chloride 0.9% 100 ML IVPB SCH (17:48)
[2016-12-30 05:35] LABS: Anion Gap 15 mmol/L (10-20); BUN (Urea Nitrogen) 60 mg/dL (9.8-20.1); Calc. Creatinine Clearance 19 mL/min (70-130); Calcium 7.6 mg/dL (7.8-10.44); Carbon Dioxide 22 mmol/L (23-31); Chloride 103 mmol/L (98-107); Estimated GFR-MDRD 13; Glucose 117 mg/dL (83-110); Potassium 4.8 mmol/L (3.5-5.1); Sodium 135 mmol/L (136-145)
[2016-12-30] MEDS: Mometasone/Formoterol 60 PUFF AER INH SCH ×2 (05:46→18:32)
--- NOTE | 2016-12-30 07:37 | RAD ---
AP VIEW CHEST: INDICATIONS: Low O2 sats. COMPARISON: 12/28/2016 IMPRESSION: Cardiomegaly persists. Pulmonary vascular congestion is stable. No confluent air space opacity or pleural effusion is evident. The post surgical change involving the right chest wall is similar viktoriya earing. No pneumothorax is evident. POS: [facility]
[2016-12-30] MEDS: Vit A,C & E/Lutein/Minerals Tablet PO SCH (09:28)
[2016-12-30] MEDS: Polyethylene Glycol 3350 17 GM Packet PO SCH (09:28)
[2016-12-30] MEDS: Senokot S 8.6-50 MG TAB PO SCH ×2 (09:29→20:40)
[2016-12-30] MEDS: Floranex Packet PO SCH (09:29)
[2016-12-30] MEDS: NIFEdipine XL 30 MG TAB PO SCH (09:29)
[2016-12-30] MEDS: Ferrous Gluconate 324 MG TAB PO SCH ×2 (09:29→16:49)
[2016-12-30] MEDS: Gabapentin 300 MG CAP PO SCH (09:29)
[2016-12-30] MEDS: Potassium Chloride 10 MEQ TAB PO SCH (09:30)
[2016-12-30] MEDS: Ezetimibe 10 MG TAB PO SCH (09:30)
[2016-12-30] MEDS: Nystatin Cream 15 GM TUBE TOP SCH ×2 (09:30→20:40)
[2016-12-30] MEDS: Sodium Chloride 0.9% 1,000 ML IV SCH (16:49)
[2016-12-30] MEDS: cefTRIAXone\\ROCEPHIN 1 GM in Sodium Chloride 0.9% 100 ML IVPB SCH (16:53)
[2016-12-31] MEDS: Mometasone/Formoterol 60 PUFF AER INH SCH ×2 (06:12→19:10)
[2016-12-31] MEDS: Ferrous Gluconate 324 MG TAB PO SCH ×2 (08:11→16:32)
[2016-12-31] MEDS: Vit A,C & E/Lutein/Minerals Tablet PO SCH (08:11)
[2016-12-31] MEDS: Senokot S 8.6-50 MG TAB PO SCH ×2 (08:11→20:42)
[2016-12-31] MEDS: Floranex Packet PO SCH (08:12)
[2016-12-31] MEDS: Polyethylene Glycol 3350 17 GM Packet PO SCH (08:12)
[2016-12-31] MEDS: Gabapentin 300 MG CAP PO SCH (08:12)
[2016-12-31] MEDS: NIFEdipine XL 30 MG TAB PO SCH (08:12)
[2016-12-31] MEDS: Potassium Chloride 10 MEQ TAB PO SCH (08:12)
[2016-12-31] MEDS: Ezetimibe 10 MG TAB PO SCH (08:12)
[2016-12-31] MEDS: Nystatin Cream 15 GM TUBE TOP SCH ×2 (08:13→20:42)
[2016-12-31] MEDS: cefTRIAXone\\ROCEPHIN 1 GM in Sodium Chloride 0.9% 100 ML IVPB SCH (16:32)
[2016-12-31] MEDS: Sodium Chloride 0.9% 1,000 ML IV SCH (16:33)
[2017-01-01] MEDS: Mometasone/Formoterol 60 PUFF AER INH SCH ×2 (06:20→18:25)
[2017-01-01] MEDS: NIFEdipine XL 30 MG TAB PO SCH (08:01)
[2017-01-01] MEDS: Ferrous Gluconate 324 MG TAB PO SCH ×2 (08:01→16:41)
[2017-01-01] MEDS: Vit A,C & E/Lutein/Minerals Tablet PO SCH (08:02)
[2017-01-01] MEDS: Floranex Packet PO SCH (08:02)
[2017-01-01] MEDS: Senokot S 8.6-50 MG TAB PO SCH ×2 (08:03→20:58)
[2017-01-01] MEDS: Ezetimibe 10 MG TAB PO SCH (08:03)
[2017-01-01] MEDS: Potassium Chloride 10 MEQ TAB PO SCH (08:03)
[2017-01-01] MEDS: Gabapentin 300 MG CAP PO SCH (08:03)
[2017-01-01] MEDS: Nystatin Cream 15 GM TUBE TOP SCH ×2 (08:04→20:59)
[2017-01-01] MEDS: Polyethylene Glycol 3350 17 GM Packet PO SCH (08:05)
[2017-01-01] MEDS: Sodium Chloride 0.9% 1,000 ML IV SCH (16:40)
[2017-01-01] MEDS: cefTRIAXone\\ROCEPHIN 1 GM in Sodium Chloride 0.9% 100 ML IVPB SCH (16:43)
[2017-01-02 05:08] VITALS: BMI 44.1
[2017-01-02] MEDS ORDERED: Sodium Chloride 0.9% 1,000 ML BAG ONE (05:48)
[2017-01-02] MEDS: Mometasone/Formoterol 60 PUFF AER INH SCH (07:37)
[2017-01-02] MEDS: Ferrous Gluconate 324 MG TAB PO SCH (07:38)
[2017-01-02 08:33] VITALS: BP 144/65
[2017-01-02 08:35] VITALS: TEMP 97.9
[2017-01-02] MEDS: NIFEdipine XL 30 MG TAB PO SCH (08:55)
[2017-01-02] MEDS: Ezetimibe 10 MG TAB PO SCH (08:55)
[2017-01-02] MEDS: Vit A,C & E/Lutein/Minerals Tablet PO SCH (08:55)
[2017-01-02] MEDS: Polyethylene Glycol 3350 17 GM Packet PO SCH (08:56)
[2017-01-02] MEDS: Gabapentin 300 MG CAP PO SCH (08:56)
[2017-01-02] MEDS: Floranex Packet PO SCH (08:56)
[2017-01-02] MEDS: Senokot S 8.6-50 MG TAB PO SCH (08:57)
[2017-01-02] MEDS: Potassium Chloride 10 MEQ TAB PO SCH (08:57)
[2017-01-02] MEDS: Nystatin Cream 15 GM TUBE TOP SCH (08:58)
[2017-01-02 11:58] LABS: Anion Gap 19 mmol/L (10-20); BUN (Urea Nitrogen) 79 mg/dL (9.8-20.1); Calc. Creatinine Clearance 12 mL/min (70-130); Calcium 8.1 mg/dL (7.8-10.44); Carbon Dioxide 17 mmol/L (23-31); Chloride 99 mmol/L (98-107); Estimated GFR-MDRD 7; Glucose 152 mg/dL (83-110); Potassium 5.4 mmol/L (3.5-5.1); Sodium 130 mmol/L (136-145)
--- NOTE | 2017-01-02 13:19 | RAD ---
PORTABLE CHEST ONE VIEW: 01/02/2017 11:27 a.m. HISTORY: Acute weight gain. COMPARISON: 12/30/2016 FINDINGS: There is continued elevation of the right hemidiaphragm. The heart is enlarged. There is pulmonary vascular congestion. No lobar consolidation, pneumothorax, or large effusions are seen. POS: [facility]
--- NOTE | 2017-01-03 16:05 | DIS ---
DATE OF ADMISSION: 12/08/2016 DATE OF DISCHARGE: 01/02/2017 REASON FOR ADMISSION: Skilled rehabilitation in [facility]. DISCHARGE DIAGNOSES: 1. Acute on chronic kidney failure. 2. Congestive heart failure, Acute on chronic. 3. Chronic respiratory failure from severe chronic obstructive pulmonary disease, O2 dependent 4. Urinary tract infection, recurrent, currently on Rocephin IV. 5. Dehydration secondary to poor oral intake. 6. Deconditioning. SECONDARY DIAGNOSES: 1. S/P ORIF Right lowe extremity secodary to fall at home. 2. Abnormality of gait secondary to Recent ORIF 3. Hypertension. 4. Coronary artery disease. 5. . Morbid obesity. CURRENT MEDICATIONS: 1. Rocephin 1000 mg IV daily. 2. Acebutolol 200 mg p.o. daily. 3. Acetaminophen 1000 mg q.6 hour. 4. Acidophilus and bulgaricus 1 gram daily. 5. Amiodarone 100 mg p.o. daily. 6. Bisacodyl 10 mg p.o. daily p.r.n. 7. Zetia 10 mg p.o. daily. 8. Ferrous gluconate 324 mg p.o. b.i.d. 9. Gabapentin 300 mg p.o. daily. 10. DuoNeb 3 mL q.4 hours p.r.n. 11. Magnesium hydroxide 30 mL p.o. daily. 12. Mometasone/formoterol 2 puffs inhaled b.i.d. 13. Nifedipine 60 mg p.o. daily. 14. Nitroglycerin 0.4 mg sublingual q.15 minutes p.r.n. for chest pain. 15. Nystatin cream b.i.d. p.r.n. 16. Pantoprazole 40 mg p.o. daily. 17. Polyethylene glycol 17 grams p.o. daily. 18. Potassium chloride 10 mEq p.o. daily. 19. Multivitamins 2 tablets p.o. daily. 20. Sennosides/docusate 2 tablets p.o. b.i.d. 21. Hydralazine 10 mg p.o. q.i.d. p.r.n. CONDITION ON DISCHARGE: Guarded. DISPOSITION: [facility] Telemetry and the Hospitalist accepting doctor, Dr. Cruz. HISTORY OF PRESENT ILLNESS AND HOSPITAL COURSE: Ms. Abernathy is an 86-year- old female with multiple chronic medical conditions including severe COPD, chronic respiratory failure, O2 dependent requiring about 5-6 liters per nasal cannula with intermittent use of nonrebreather, diastolic CHF, hypertension, CAD, morbid obesity. Patient had a recent fall at home a couple of months ago. She underwent ORIF of the right leg after the fall. Patient stayed in [facility] for skilled rehab at that time. While in [place] rehab, patient had an acute onset of CHF exacerbation on 2016. She was transferred back to [facility] in [place] at that time and was treated medically. Patient went back to [facility] bed on 12/08/2016 to continue rehab. Patient has been toe-touch weightbearing only. She had a very slow progress of rehabilitation in [place] secondary to limited ambulatory potential associated with her chronic medical conditions. During her rehab stay, patient's O2 saturation remained at 86 to low 90s with 5 -6 liters of O2 continuous per nasal cannula. Intermittently, patient would have an acute desaturation down to 60- 70s, requiring nonrebreather mask. Patient easily responds to nonrebreather p.r.n. Her respiratory issues served as a main barrier for her rehab. She remains max assist as she is generally weak and with very unsteady gait. She easily desats with slight change of position from supine to sitting or up to standing position. Patient had a recurrent history of UTI. She has been treated a couple of times for this with oral antibiotics. Patient could not tolerate to ambulate to the bathroom nor to the bedside commode, thus requiring insertion of indwelling Lopez catheter. Patient overall made some progress lately in her functional status. She is able to ambulate using her wheelchair by herself /manual propelling at some point. She had a follow up ortho care with Dr. Hummel, few days ago and was recommended to start toe-touch partial weightbearing Patient had a hard time with this as she secondary to severe unsteadiness of feet. About 4 days ago, patient was noted to have low-grade fever that was intermittent for a couple of days. Repeat lab showed significant UTI with her urine culture positive for growth of E. coli. Patient was retreated with antibiotic. This time we started her on IV antibiotic. She was started on Rocephin 1000 mg IV daily based on her culture and sensitivity results. Patient was likewise noted to be clinically dehydrated deemed secondary to inadequate oral consumption. Patient admits that she hardly drinks water despite of the recommendation. Her chest x-ray at that time has no significant acute process, but remains of cardiomegaly and pulmonary congestion, but no significant pulmonary effusion noted. Her renal function have significantly worsened from baseline creatinine of 1.74 on 12/18, Creatinine worsened to 3.4 on 12/28/2016. Patient's furosemide was subsequently withheld and patient was hydrated with IVF with extra caution. We monitored her creatinine and electrolytes closely. Her creatinine stabilized from 12/29 to 12/30 at 3.4. Her chest xray remains stable with no acute process. Telephone consult was made with Dr. Hanson regarding this, who recommended to continue current management. We continued to hold her furosemide over the past 2-3 days without significant obvious volume retention noted. Patient remains afebrile for the last 5 days, and started drinking more fluids. Today, staff reports that she is significantly confused . She was noticed to be fidgety and anxious more than her usual. She also had an overnight weight gain of about 8 pounds. Repeat labs today showed creatinine worsened to 6.1 with potassium of 5.4 and sodium of 130. Her chest x-ray showed no significant acute interval process. Earlier this morning, she was also reported to have hypoxia down to the 70s that responded very easily to nonrebreather up to 90s, making her O2 sats up to 92. Patient was then switched to continuous O2 per nasal cannula at 5 liters. Her O2 sat has been running under low 90s. Renal consult was made with Dr. Hanson today secondary to an acute renal failure. Dr. Hanson recommended transfer to [facility] in [place] for tertiary/specialty care. Discussed above finding status and plan with the son Mr. Arthur Abernathy on the phone who concurs with the plan. The patient was transferred to [facility]. Accepting hospitalist doctor, Dr. Cruz. Patient will be admitted to telemetry. CODE STATUS: DO NOT RESUSCITATE, DO NOT INTUBATE. Vital signs prior to discharge, blood pressure 144/65, O2 sats 89-95 liters per nasal cannula, pulse 63, temperature 97.2, weight 242 pounds and 9 ounces, height 5.2. Time spent on this discharge 40 minutes. MTDD
== END 2017-01-02 16:24 | disposition short-term general hospital (02) | DRG 559 ==
LOC: MADMS 17:42
PROVIDERS: ADMIT Family Medicine; ATTEND Family Medicine
DX: S72.91XD Unspecified fracture of right femur, subsequent encounter for closed fracture with routine healing (principal); I50.33 Acute on chronic diastolic (congestive) heart failure; J96.21 Acute and chronic respiratory failure with hypoxia; N17.9 Acute kidney failure, unspecified; I13.0 Hypertensive heart and chronic kidney disease with heart failure and stage 1 through stage 4 chronic kidney disease, or unspecified chronic kidney disease; Z68.41 Body mass index [BMI] 40.0-44.9, adult; N39.0 Urinary tract infection, site not specified; J44.9 Chronic obstructive pulmonary disease, unspecified; I25.10 Atherosclerotic heart disease of native coronary artery without angina pectoris; E66.01 Morbid (severe) obesity due to excess calories; Z91.81 History of falling; Z79.82 Long term (current) use of aspirin; E78.5 Hyperlipidemia, unspecified; N18.3 Chronic kidney disease, stage 3 (moderate); D64.9 Anemia, unspecified; Z66 Do not resuscitate; E86.0 Dehydration; Z99.81 Dependence on supplemental oxygen; B96.20 Unspecified Escherichia coli [E. coli] as the cause of diseases classified elsewhere; W18.30XD Fall on same level, unspecified, subsequent encounter
CPT/HCPCS: 36415; 36416; 71010; 80048; 81001; 83036; 85014; 85018; 85025; 85049; 87040; 87077; 87086; 87186; 94664; A4216; J0696; J1644; J7050; J7620